=== PATIENT | female | born 1995 | race Two or more races ===

== ENCOUNTER 2017-07-21 11:35 | Emergency (ER) | payer BC, MEDICAID ==
[~2017-07-21] VITALS: Ht 172.7 cm; Wt 63.2 kg
[~2017-07-21 11:35] MED LIST: DRON2.5C PO; ERYT-109 PO; GABA-532 PO; HYDR2TAB28 PO; INSU100C4 SQ; INSU100V12 SQ; LISI-600 PO; LORA1TAB PO; PROC-8 PO; ZOLP5TAB2 PO
[2017-07-21 12:34] LABS: BASOPHILS % (AUTO) 0.4 % (0-1); EOSINOPHILS # (AUTO) 0.1 X10'3 (0-0.9); EOSINOPHILS % (AUTO) 1.3 % (0-6); HEMOGLOBIN 13.9 g/dl (12.0-16.0); LYMPHOCYTES # (AUTO) 3.5 X10'3 (1.1-4.8); LYMPHOCYTES % (AUTO) 39.1 % (21-51); MEAN CORPUSCULAR HEMOGLOBIN 29.3 PG (27.0-31.0); MEAN CORPUSCULAR VOLUME 88.9 FL (78-98); MONOCYTES # (AUTO) 0.7 X10'3 (0-0.9); MONOCYTES % (AUTO) 7.3 % (2-12); NEUTROPHILS # (AUTO) 4.7 X10'3 (1.8-7.7); NEUTROPHILS % (AUTO) 51.9 % (42-75); PLATELET COUNT 328 X10'3 (140-440); RED BLOOD COUNT 4.73 X10'6 (4.20-5.60); RED CELL DISTRIBUTION WIDTH 13.3 % (11.5-14.5)
[2017-07-21 12:42] LABS: PROTHROMBIN TIME 10.5 SECONDS (9.0-12.0)
[2017-07-21 12:49] LABS: ALANINE AMINOTRANSFERASE 23 U/L (12-78); ALBUMIN 3.5 G/DL (3.4-5.0); ALKALINE PHOSPHATASE 98 IU/L (46-116); ANION GAP 15 (8-16); ASPARTATE AMINO TRANSFERASE 19 U/L (10-37); BILIRUBIN,TOTAL 0.4 MG/DL (0.1-1.0); BLOOD UREA NITROGEN 6 MG/DL (7-18); BUN/CREATININE RATIO 6.5 (6.6-38.0); CALCIUM 8.6 MG/DL (8.5-10.1); CHLORIDE 101 MMOL/L (99-107); CREATININE 0.93 MG/DL (0.40-0.90); GLUCOSE 343 MG/DL (70-104); LIPASE 107 U/L (73-393); SODIUM 139 MMOL/L (135-145); TOTAL CARBON DIOXIDE 23.5 MMOL/L (24-32); eGFR 75 ML/MIN
[2017-07-21 12:59] LABS: MAGNESIUM 1.6 MG/DL (1.5-2.4); PHOSPHORUS 2.5 MG/DL (2.3-4.5)
[2017-07-21 13:03] LABS: POTASSIUM 2.9 MMOL/L (3.5-5.1)
[2017-07-21] MEDS ORDERED: ondansetron/PF 4mg/2ml inj IV ONE (13:05)
[2017-07-21] MEDS ORDERED: potassium Cl 20 mEq SR tablet PO ONE (13:05)
[2017-07-21] MEDS ORDERED: normal saline 1000ML IV soln IVB ONE (13:05)
[2017-07-21] MEDS ORDERED: potassium Cl 10 mEq/100mL bag IV ONE (13:05)
[2017-07-21] MEDS ORDERED: potassium 10mEq/100ml NS w/LIDOcaine (10mg/bag) IV ONE (13:30)
[2017-07-21] MEDS ORDERED: POTA10TA10 PO (14:03)
[2017-07-21 15:05] LABS: URINE HCG NEGATIVE (NEG)
[2017-07-21] MEDS ORDERED: HYDROmorphone inj. 0.5 MG/0.5 ML DISP.SYRIN IV ONE (15:05)
[2017-07-21] MEDS ORDERED: proCHLORperazine 10 MG/2 ml inj IV PRN (15:05)
[2017-07-21 15:09] LABS: CLARITY,URINE CLOUDY (Clear); COLOR,URINE BROWN (Yellow); GLUCOSE, URINE >=1000 mg/dl (Neg); KETONES,URINE TRACE mg/dl (Neg); LEUKOCYTE ESTERASE ,URINE SMALL (Neg); NITRITES, URINE NEGATIVE (Neg); OCCULT BLOOD,URINE SMALL (Neg); PROTEIN,URINE NEGATIVE (Neg); UROBILINOGEN,URINE 0.2 E.U/dL (0.2-1.0)
[2017-07-21 15:18] LABS: UA COLLECTION TYPE CLN CATCH MIDSTREAM
[2017-07-21 15:20] LABS: BACTERIA,URINE 2+ /HPF (Neg); MUCUS STRANDS FEW /LPF (Neg); SQUAMOUS EPITHELIAL CELL,UR MANY /LPF (FEW)
[2017-07-21 16:09] VITALS: BP 155/86
[2017-07-21 16:15] LABS: COLOR,URINE STRAW (Yellow); GLUCOSE, URINE >=1000 mg/dl (Neg); KETONES,URINE NEGATIVE (Neg); LEUKOCYTE ESTERASE ,URINE MODERATE (Neg); NITRITES, URINE NEGATIVE (Neg); OCCULT BLOOD,URINE NEGATIVE (Neg); PH,URINE 6.5 (4.8-8.0); PROTEIN,URINE NEGATIVE (Neg); UROBILINOGEN,URINE 0.2 E.U/dL (0.2-1.0)
[2017-07-21 16:17] LABS: CLARITY,URINE SLIGHTLY CLOUDY (Clear); UA COLLECTION TYPE CLN CATCH MIDSTREAM
[2017-07-21 16:33] LABS: BACTERIA,URINE 3+ /HPF (Neg); RBC,URINE 0-2 /HPF (0-2); SQUAMOUS EPITHELIAL CELL,UR FEW /LPF (FEW)
== END 2017-07-21 16:10 | disposition home or self-care (01) ==
LOC: ER 11:35
DX: E87.6 Hypokalemia (principal); R10.84 Generalized abdominal pain; G89.29 Other chronic pain; R11.2 Nausea with vomiting, unspecified; E11.9 Type 2 diabetes mellitus without complications; F12.10 Cannabis abuse, uncomplicated; Z79.4 Long term (current) use of insulin; Z91.012 Allergy to eggs; Z88.8 Allergy status to other drugs, medicaments and biological substances
CPT/HCPCS: 36415; 80053; 81001; 81025; 83690; 83735; 84100; 85025; 85610; 87077; 87088; 87186; 96361; 96365; 96375; 99284; J0780; J1170; J2270; J2405; J3480; J7030

== ENCOUNTER 2018-03-15 21:51 | Inpatient (IN) | payer BC, MEDICAID ==
[~2018-03-15] VITALS: Ht 172.7 cm; Wt 62.3 kg
[~2018-03-15 21:51] MED LIST changes: -LISI-600 PO
[2018-03-15] MEDS ORDERED: normal saline 1000ML IV soln IVB ONE (23:15)
[2018-03-15] MEDS ORDERED: ondansetron/PF 4mg/2ml inj IV ONE (23:15)
[2018-03-15] MEDS ORDERED: famotidine/PF 10 mg/ml inj IV ONE (23:15)
[2018-03-15] MEDS ORDERED: normal saline 1000ml 1,000 ML IV ONE (23:15)
[2018-03-15] MEDS ORDERED: morphine 4 MG/ML inj SYRINge IV ONE (23:15)
[2018-03-15] MEDS ORDERED: haloperidol lactate 5mg/ml inj IM ONE (23:35)
[2018-03-15] MEDS ORDERED: LORazepam 2 mg/ml vial IV ONE (23:35)
[2018-03-16 00:07] LABS: ALANINE AMINOTRANSFERASE 28 U/L (12-78); ALBUMIN 3.4 G/DL (3.4-5.0); ALBUMIN/GLOBULIN RATIO 0.9 (1.1-1.5); ALKALINE PHOSPHATASE 90 IU/L (46-116); ANION GAP 15 (8-16); ASPARTATE AMINO TRANSFERASE 21 U/L (10-37); BILIRUBIN,TOTAL 0.7 MG/DL (0.1-1.0); BLOOD UREA NITROGEN 9 MG/DL (7-18); BUN/CREATININE RATIO 10.7 (6.6-38.0); CALCIUM 8.6 MG/DL (8.5-10.1); CHLORIDE 105 MMOL/L (99-107); CREATINE KINASE 92 U/L (26-192); CREATININE 0.84 MG/DL (0.40-0.90); GLUCOSE 92 MG/DL (70-104); LIPASE 55 U/L (73-393); MAGNESIUM 1.8 MG/DL (1.5-2.4); SODIUM 138 MMOL/L (135-145); TOTAL CARBON DIOXIDE 18.4 MMOL/L (24-32); eGFR 84 ML/MIN
[2018-03-16 00:11] LABS: POTASSIUM 3.7 MMOL/L (3.5-5.1)
[2018-03-16] MEDS ORDERED: morphine 4 MG/ML inj SYRINge IV ONE ×2 (00:35→04:10)
[2018-03-16 01:23] LABS: BASOPHILS % (AUTO) 0.5 % (0-1); EOSINOPHILS % (AUTO) 0.1 % (0-6); HEMOGLOBIN 11.6 g/dl (12.0-16.0); LYMPHOCYTES # (AUTO) 1.4 X10'3 (1.1-4.8); LYMPHOCYTES % (AUTO) 20.8 % (21-51); MEAN CORPUSCULAR HEMOGLOBIN 30.7 PG (27.0-31.0); MEAN CORPUSCULAR HGB CONC 34.1 % (33.0-36.5); MEAN CORPUSCULAR VOLUME 90.1 FL (78-98); MEAN PLATELET VOLUME 9.3 FL (7.4-10.4); MONOCYTES # (AUTO) 0.4 X10'3 (0-0.9); MONOCYTES % (AUTO) 6.1 % (2-12); NEUTROPHILS # (AUTO) 4.8 X10'3 (1.8-7.7); NEUTROPHILS % (AUTO) 72.5 % (42-75); PLATELET COUNT 301 X10'3 (140-440); RED BLOOD COUNT 3.77 X10'6 (4.20-5.60); RED CELL DISTRIBUTION WIDTH 13.1 % (11.5-14.5); WHITE BLOOD COUNT 6.6 X10'3 (4.5-11.0)
[2018-03-16 02:40] LABS: ABG BASE EXCESS -7.4 mmol/L (-2.0-3.0); ABG HCO3 17.4 mmol/L (22.0-26.0); ABG OXYGEN SATURATION 97.4 % (95-98); ABG PCO2 (T) 32.4 mmHg (32.0-45.0); ABG PH (T) 7.346 (7.350-7.450); ABG PO2 (T) 101.7 mmHg (83-108); ALLEN'S TEST Positive; FCOHb 0.3 % (0.5-1.5); FMetHb 0.2 % (0.3-1.12); FO2Hb 96.9 % (94-100); PATIENT TEMPERATURE 36.7; TOTAL HEMOGLOBIN 11.5 G/dl (12.0-16.0)
[2018-03-16] MEDS ORDERED: insulin regular, human 10 units/0.1 ml syringe IV ONE ×2 (04:10→05:25)
[2018-03-16] MEDS ORDERED: dextrose 5%-1/2 normal saline 1,000 ML IV SCH (04:10)
[2018-03-16] MEDS ORDERED: dextrose 50%-water 50ml dispensing syringe IV ONE (04:10)
[2018-03-16] MEDS ORDERED: INSU100C4 SQ (05:58)
[2018-03-16 06:16] LABS: ALBUMIN 2.8 G/DL (3.4-5.0); ANION GAP 12 (8-16); BLOOD UREA NITROGEN 8 MG/DL (7-18); BUN/CREATININE RATIO 10.8 (6.6-38.0); CALCIUM 7.6 MG/DL (8.5-10.1); CHLORIDE 106 MMOL/L (99-107); CREATININE 0.74 MG/DL (0.40-0.90); GLUCOSE 271 MG/DL (70-104); SODIUM 137 MMOL/L (135-145); TOTAL CARBON DIOXIDE 18.6 MMOL/L (24-32); eGFR > 90 ML/MIN
[2018-03-16 06:16] LABS: URINE HCG NEGATIVE (NEG)
[2018-03-16 06:25] LABS: URINE AMPHETAMINE SCREEN NEGATIVE (Neg); URINE BARBITUATE SCREEN NEGATIVE (Neg); URINE BENZODIAZEPINES SCREEN NEGATIVE (Neg); URINE CANNABINOID SCREEN POSITIVE (Neg); URINE COCAINE SCREEN NEGATIVE (Neg); URINE METHADONE SCREEN NEGATIVE (Neg); URINE OPIATE SCREEN POSITIVE (Neg); URINE PHENCYCLIDINE SCREEN NEGATIVE (Neg)
[2018-03-16 06:42] LABS: CLARITY,URINE SLIGHTLY CLOUDY (Clear); COLOR,URINE STRAW (Yellow); GLUCOSE, URINE >=1000 mg/dl (Neg); KETONES,URINE >=80 mg/dl (Neg); LEUKOCYTE ESTERASE ,URINE NEGATIVE (Neg); NITRITES, URINE NEGATIVE (Neg); OCCULT BLOOD,URINE NEGATIVE (Neg); PROTEIN,URINE NEGATIVE (Neg); UROBILINOGEN,URINE 0.2 E.U/dL (0.2-1.0)
[2018-03-16 06:43] LABS: UA COLLECTION TYPE CLN CATCH MIDSTREAM
[2018-03-16 06:44] LABS: BACTERIA,URINE FEW /HPF (Neg); MUCUS STRANDS FEW /LPF (Neg); RBC,URINE NONE SEEN /HPF (0-2); SQUAMOUS EPITHELIAL CELL,UR MODERATE /LPF (FEW); WBC,URINE 0-4 /HPF (0-4); YEAST MODERATE /HPF (NEGATIVE)
[2018-03-16] MEDS: potass W/LIDOcaine 10mEq/100ml 100 ML IV SCH ×2 (06:50→07:45)
[2018-03-16] MEDS ORDERED: potassium Cl 40MEQ/NS 500ml 500 ML IV PRN ×2 (07:50)
[2018-03-16] MEDS ORDERED: metoclopramide 5 mg/ml inj IV PRN (07:50)
[2018-03-16] MEDS ORDERED: acetaminophen 325mg tablet PO PRN ×2 (07:50)
[2018-03-16] MEDS ORDERED: MESSAGE TO PHARMACY PO ONE (07:50)
[2018-03-16] MEDS ORDERED: magnesium 1gm/100ml D5W IVPB 50 ML IV PRN (07:50)
[2018-03-16] MEDS ORDERED: glucagon, human recombinant 1mg kit SUBCUT PRN (07:50)
[2018-03-16] MEDS ORDERED: dextrose 50%-water 50ml dispensing syringe IV PRN ×2 (07:50)
[2018-03-16] MEDS ORDERED: mag hydrox/Alum hydrox/simeth 30ml oral suspension PO PRN (07:50)
[2018-03-16] MEDS ORDERED: dextrose ORAL solution 15 GM/59 ML bottle PO PRN ×2 (07:50)
[2018-03-16] MEDS ORDERED: potassium Cl 20 mEq SR tablet PO PRN ×2 (07:50)
[2018-03-16] MEDS ORDERED: magnesium 4gm in 100ml NS 100 ML IV PRN (07:50)
[2018-03-16] MEDS ORDERED: magnesium hydroxide 30ml (MOM) UD suspension PO PRN (07:50)
[2018-03-16] MEDS ORDERED: magnesium Cl slow-release 64mg tablet PO PRN (07:50)
[2018-03-16] MEDS ORDERED: zolpidem 5mg tablet PO PRN (08:00)
[2018-03-16] MEDS ORDERED: INSULIN DETEMIR 25 UNIT SQ SCH (08:00)
[2018-03-16] MEDS: K and/or MAG REPLACEMENT MC SCH (08:00)
[2018-03-16 08:19] LABS: HEMOGLOBIN A1C 11.8 % (4.5-6.2)
[2018-03-16] MEDS: pantoprazole 40 MG vial IV SCH (08:54)
[2018-03-16] MEDS: normal saline 1000ml 1,000 ML IV SCH ×2 (08:55→16:56)
[2018-03-16] MEDS: gabapentin 300mg capsule PO SCH ×3 (08:55→21:03)
[2018-03-16] MEDS: ondansetron/PF 4mg/2ml inj IV PRN (09:03)
[2018-03-16] MEDS: HYDROmorphone 2mg tablet PO PRN ×2 (09:03→19:55)
[2018-03-16] MEDS: LORazepam 1 MG tablet PO PRN ×2 (11:15→21:03)
[2018-03-16 11:34] VITALS: BP 148/104
[2018-03-16] MEDS: lisinopril 20mg tablet PO SCH (13:05)
[2018-03-16] MEDS: insulin Lispro (HumaLOG) vial - multi-dose SQ SCH ×2 (13:33→21:13)
[2018-03-16] MEDS: dronabinol 2.5mg capsule PO SCH (17:23)
[2018-03-16 18:00] VITALS: BP 127/83
[2018-03-16] MEDS: insulin glargine (Lantus) pen - multi-dose SQ SCH (19:47)
[2018-03-16] MEDS ORDERED: Insulin Detemir pen SQ SCH (20:00)
[2018-03-16] MEDS ORDERED: insulin glargine (Lantus) pen - multi-dose SQ SCH (21:00)
[2018-03-16] MEDS ORDERED: insulin Lispro (HumaLOG) vial - multi-dose SQ ONE (23:57)
[2018-03-17] MEDS: normal saline 1000ml 1,000 ML IV SCH ×2 (00:11→07:55)
[2018-03-17 00:21] VITALS: BP 123/88
[2018-03-17 05:25] LABS: HEMATOCRIT 32.6 % (35.0-45.0); HEMOGLOBIN 10.9 g/dl (12.0-16.0); MEAN CORPUSCULAR HEMOGLOBIN 30.2 PG (27.0-31.0); MEAN CORPUSCULAR HGB CONC 33.4 % (33.0-36.5); MEAN CORPUSCULAR VOLUME 90.3 FL (78-98); MEAN PLATELET VOLUME 9.6 FL (7.4-10.4); PLATELET COUNT 292 X10'3 (140-440); RED BLOOD COUNT 3.61 X10'6 (4.20-5.60); RED CELL DISTRIBUTION WIDTH 13.7 % (11.5-14.5); WHITE BLOOD COUNT 6.3 X10'3 (4.5-11.0)
[2018-03-17 06:43] LABS: ALANINE AMINOTRANSFERASE 16 U/L (12-78); ALBUMIN 2.6 G/DL (3.4-5.0); ALBUMIN/GLOBULIN RATIO 0.8 (1.1-1.5); ALKALINE PHOSPHATASE 87 IU/L (46-116); ANION GAP 8 (8-16); ASPARTATE AMINO TRANSFERASE 14 U/L (10-37); BILIRUBIN,TOTAL 0.4 MG/DL (0.1-1.0); BLOOD UREA NITROGEN 6 MG/DL (7-18); CALCIUM 8.3 MG/DL (8.5-10.1); CHLORIDE 109 MMOL/L (99-107); GLUCOSE 85 MG/DL (70-104); MAGNESIUM 1.7 MG/DL (1.5-2.4); PHOSPHORUS 2.8 MG/DL (2.3-4.5); POTASSIUM 3.5 MMOL/L (3.5-5.1); SODIUM 140 MMOL/L (135-145); TOTAL CARBON DIOXIDE 22.8 MMOL/L (24-32); TOTAL PROTEIN 5.8 G/DL (6.4-8.2); eGFR > 90 ML/MIN
[2018-03-17] MEDS: LORazepam 1 MG tablet PO PRN (06:57)
[2018-03-17] MEDS: K and/or MAG REPLACEMENT MC SCH (07:06)
[2018-03-17 07:31] VITALS: BP 151/99
[2018-03-17] MEDS: lisinopril 20mg tablet PO SCH (07:55)
[2018-03-17] MEDS: gabapentin 300mg capsule PO SCH ×2 (07:55→12:05)
[2018-03-17] MEDS: pantoprazole 40 MG vial IV SCH (07:55)
[2018-03-17] MEDS: HYDROmorphone 2mg tablet PO PRN ×2 (07:56→14:01)
[2018-03-17] MEDS: dronabinol 2.5mg capsule PO SCH (07:56)
[2018-03-17] MEDS: insulin glargine (Lantus) pen - multi-dose SQ SCH (08:05)
[2018-03-17] MEDS: insulin Lispro (HumaLOG) vial - multi-dose SQ SCH ×2 (09:00→14:08)
[2018-03-17] MEDS: ondansetron/PF 4mg/2ml inj IV PRN (09:05)
[2018-03-17] MEDS ORDERED: HYDROmorphone inj. 0.5 MG/0.5 ML DISP.SYRIN IV PRN (09:45)
[2018-03-17] MEDS ORDERED: LORazepam 2 mg/ml vial IV PRN (09:45)
[2018-03-17] MEDS ORDERED: HYDROmorphone 1 mg/ml syringe ONE (09:59)
[2018-03-17 11:32] VITALS: BP 140/96
[2018-03-17] MEDS ORDERED: LISI-600 PO (15:28)
[2018-03-18] MEDS ORDERED: pantoprazole 40mg Tablet.DR PO SCH (07:30)
== END 2018-03-17 15:59 | disposition home or self-care (01) | DRG 74 ==
LOC: ER 21:51 → ED HOLD 03-16 07:50 → SUR 3N 03-16 11:11
PROVIDERS: ADMIT Family Medicine; ATTEND Family Medicine
DX: E10.43 Type 1 diabetes mellitus with diabetic autonomic (poly)neuropathy (principal); E86.0 Dehydration; E87.6 Hypokalemia; F12.90 Cannabis use, unspecified, uncomplicated; F32.9 Major depressive disorder, single episode, unspecified; G89.29 Other chronic pain; I10 Essential (primary) hypertension; E10.10 Type 1 diabetes mellitus with ketoacidosis without coma; K29.50 Unspecified chronic gastritis without bleeding; D64.9 Anemia, unspecified; K31.84 Gastroparesis; T40.7X5A Adverse effect of cannabis (derivatives), initial encounter; Z79.891 Long term (current) use of opiate analgesic; Z79.899 Other long term (current) drug therapy; Z88.8 Allergy status to other drugs, medicaments and biological substances; Z91.012 Allergy to eggs
CPT/HCPCS: 36415; 36600; 71045; 80048; 80053; 80305; 81001; 81025; 82009; 82550; 82803; 82948; 83036; 83690; 83735; 84100; 84132; 85018; 85025; 85027; 93005; 96361; 96372; 96374; 96375; 96376; 99285; C9113; J1170; J1630; J1815; J2060; J2270; J2405; J3480; J3490; J7030; Q0167

== ENCOUNTER 2018-08-28 16:31 | Inpatient (IN) | payer BC, MEDICAID ==
[~2018-08-28] VITALS: Ht 172.7 cm; Wt 68.2 kg
[~2018-08-28 16:31] MED LIST changes: -ERYT-109 PO; +LISI-600 PO
[2018-08-28] MEDS ORDERED: diphenhydrAMINE 50 mg/ml inj IV ONE (16:50)
[2018-08-28] MEDS ORDERED: ondansetron/PF 4mg/2ml inj IV ONE (16:50)
[2018-08-28] MEDS ORDERED: normal saline 1000ML IV soln IVB ONE ×2 (16:50→17:50)
--- NOTE | 2018-08-28 17:02 | NUR ---
pt jumped up off [facility] shortly after she was roomed stating she had "to go the bathroom" I asked pt to wait for me to give her a specimen cup so she could provide a urine specimen, pt said I don't have to do that, "i gotta poop" and pt walked away from me while I was offering her a specimen cup.
[2018-08-28] MEDS ORDERED: insulin regular, human 10 units/0.1 ml syringe IV ONE (17:05)
[2018-08-28 17:22] LABS: BASOPHILS % (AUTO) 0.2 % (0-1); EOSINOPHILS # (AUTO) 0.1 X10'3 (0-0.9); EOSINOPHILS % (AUTO) 1.1 % (0-6); HEMATOCRIT 39.4 % (35.0-45.0); LYMPHOCYTES # (AUTO) 1.9 X10'3 (1.1-4.8); LYMPHOCYTES % (AUTO) 16.9 % (21-51); MEAN CORPUSCULAR HEMOGLOBIN 29.7 PG (27.0-31.0); MEAN CORPUSCULAR HGB CONC 33.1 % (33.0-36.5); MEAN CORPUSCULAR VOLUME 89.7 FL (78-98); MEAN PLATELET VOLUME 9.2 FL (7.4-10.4); MONOCYTES # (AUTO) 0.5 X10'3 (0-0.9); MONOCYTES % (AUTO) 4.4 % (2-12); NEUTROPHILS # (AUTO) 8.7 X10'3 (1.8-7.7); NEUTROPHILS % (AUTO) 77.4 % (42-75); PLATELET COUNT 367 X10'3 (140-440); RED BLOOD COUNT 4.39 X10'6 (4.20-5.60); RED CELL DISTRIBUTION WIDTH 13.4 % (11.5-14.5); WHITE BLOOD COUNT 11.3 X10'3 (4.5-11.0)
[2018-08-28] MEDS ORDERED: morphine 4 MG/ML inj SYRINge IV ONE ×2 (17:30→18:00)
[2018-08-28 17:39] LABS: ALANINE AMINOTRANSFERASE 24 U/L (12-78); ALBUMIN 3.9 G/DL (3.4-5.0); ALBUMIN/GLOBULIN RATIO 0.9 (1.1-1.5); ALKALINE PHOSPHATASE 124 IU/L (46-116); ANION GAP 20 (8-16); ASPARTATE AMINO TRANSFERASE 17 U/L (10-37); BILIRUBIN,TOTAL 0.8 MG/DL (0.1-1.0); BLOOD UREA NITROGEN 19 MG/DL (7-18); BUN/CREATININE RATIO 18.1 (6.6-38.0); CALCIUM 9.7 MG/DL (8.5-10.1); CHLORIDE 95 MMOL/L (99-107); CREATININE 1.05 MG/DL (0.40-0.90); LIPASE 95 U/L (73-393); POTASSIUM 3.4 MMOL/L (3.5-5.1); SODIUM 134 MMOL/L (135-145); TOTAL CARBON DIOXIDE 19.3 MMOL/L (24-32); TOTAL PROTEIN 8.2 G/DL (6.4-8.2); eGFR 64 ML/MIN
[2018-08-28 17:47] LABS: GLUCOSE 504 MG/DL (70-104)
[2018-08-28] MEDS ORDERED: insulin regular, human 100 UNIT in normal saline 100ml IV soln 100 ML IV PRN ×4 (17:50→23:56)
[2018-08-28] MEDS ORDERED: LORazepam 2 mg/ml vial IV ONE ×2 (18:00→19:30)
[2018-08-28 18:18] LABS: MAGNESIUM 1.7 MG/DL (1.5-2.4)
[2018-08-28 18:26] LABS: ABG BASE EXCESS -7.5 mmol/L (-2.0-3.0); ABG HCO3 16.1 mmol/L (22.0-26.0); ABG OXYGEN SATURATION 97.6 % (95-98); ABG PCO2 (T) 27.7 mmHg (32.0-45.0); ABG PH (T) 7.382 (7.350-7.450); ABG PO2 (T) 111.7 mmHg (83-108); ALLEN'S TEST Positive; FMetHb 0.3 % (0.3-1.12); FO2Hb 96.3 % (94-100); TOTAL HEMOGLOBIN 12.7 G/dl (12.0-16.0)
--- NOTE | 2018-08-28 19:25 | NUR ---
DISCUSSED PT'S EMESIS AND HIGH ANXIETY WITH DR STANLEY; NEW ORDERS RECIEVED.
[2018-08-28] MEDS ORDERED: metoclopramide 5 mg/ml inj IV ONE (19:30)
[2018-08-28] MEDS ORDERED: temazepam 15mg capsule PO PRN (21:00)
[2018-08-28] MEDS ORDERED: potassium cl 20mEq in 1/2 NS 1,000 ML IV SCH (21:29)
[2018-08-28] MEDS ORDERED: diphenhydrAMINE 50 mg/ml inj IV PRN (21:30)
[2018-08-28] MEDS ORDERED: mag hydrox/Alum hydrox/simeth 30ml oral suspension PO PRN (21:30)
[2018-08-28] MEDS ORDERED: glucagon, human recombinant 1mg kit SUBCUT PRN (21:30)
[2018-08-28] MEDS ORDERED: magnesium hydroxide 30ml (MOM) UD suspension PO PRN (21:30)
[2018-08-28] MEDS ORDERED: bisacodyl 10mg suppository rectal RC PRN (21:30)
[2018-08-28] MEDS ORDERED: diphenhydrAMINE 25mg capsule PO PRN (21:30)
[2018-08-28] MEDS ORDERED: dextrose 50%-water 50ml dispensing syringe IV PRN ×2 (21:30)
[2018-08-28] MEDS ORDERED: potassium Cl 40MEQ/NS 500ml 500 ML IV PRN ×2 (21:30)
[2018-08-28] MEDS ORDERED: HYDROcodone/acetaminophen 10/325mg tab PO PRN (21:30)
[2018-08-28] MEDS ORDERED: MESSAGE TO PHARMACY PO ONE (21:30)
[2018-08-28] MEDS ORDERED: acetaminophen 650mg rectal suppository RC PRN (21:30)
[2018-08-28] MEDS ORDERED: acetaminophen 325mg tablet PO PRN ×2 (21:30)
[2018-08-28] MEDS ORDERED: dextrose ORAL solution 15 GM/59 ML bottle PO PRN ×2 (21:30)
[2018-08-28] MEDS ORDERED: potassium Cl 20 mEq SR tablet PO PRN ×2 (21:30)
[2018-08-28 21:39] LABS: CLARITY,URINE CLEAR (Clear); COLOR,URINE YELLOW (Yellow); GLUCOSE, URINE >=1000 mg/dl (Neg); KETONES,URINE >=80 mg/dl (Neg); LEUKOCYTE ESTERASE ,URINE NEGATIVE (Neg); NITRITES, URINE NEGATIVE (Neg); OCCULT BLOOD,URINE NEGATIVE (Neg); PROTEIN,URINE NEGATIVE (Neg); UROBILINOGEN,URINE 0.2 E.U/dL (0.2-1.0)
[2018-08-28 21:40] LABS: URINE HCG NEGATIVE (NEG)
[2018-08-28 21:49] LABS: UA COLLECTION TYPE CLN CATCH MIDSTREAM
[2018-08-28 21:51] LABS: BACTERIA,URINE 1+ /HPF (Neg); RBC,URINE NONE SEEN /HPF (0-2); SQUAMOUS EPITHELIAL CELL,UR FEW /LPF (FEW); URINE AMPHETAMINE SCREEN NEGATIVE (Neg); URINE BARBITUATE SCREEN NEGATIVE (Neg); URINE BENZODIAZEPINES SCREEN NEGATIVE (Neg); URINE CANNABINOID SCREEN POSITIVE (Neg); URINE COCAINE SCREEN NEGATIVE (Neg); URINE METHADONE SCREEN NEGATIVE (Neg); URINE OPIATE SCREEN POSITIVE (Neg); URINE PHENCYCLIDINE SCREEN NEGATIVE (Neg); WBC,URINE 0-4 /HPF (0-4)
[2018-08-28 21:52] LABS: HEMOGLOBIN A1C 9.3 % (4.5-6.2)
[2018-08-28 21:52] LABS: YEAST FEW /HPF (NEGATIVE)
[2018-08-28 22:07] LABS: OSMOLALITY 315 MOSM/K (280-300)
[2018-08-28] MEDS: proCHLORperazine 10 MG/2 ml inj IV PRN (22:18)
[2018-08-28] MEDS: morphine 4 MG/ML inj SYRINge IV PRN (22:18)
[2018-08-28 23:00] VITALS: BP 163/99
[2018-08-28] MEDS ORDERED: potassium CL 20mEq in D5-1/2NS 1,000 ML IV PRN (23:18)
[2018-08-29] MEDS ORDERED: insulin regular, human 100 UNIT in normal saline 100ml IV soln 100 ML IV SCH ×4 (00:05)
[2018-08-29] MEDS ORDERED: insulin regular, DKA only 100 UNIT in normal saline 100ml IV soln 99 ML IV SCH ×2 (00:20)
--- NOTE | 2018-08-29 00:26 | NUR ---
Pt came up with BS of 302, we had to start the d5 and insulin at 5 units before scanning the meds because the wrong label was on there and unable to reach pharmacy. Had a second RN do a 2 RN check before we started. Pharmacy did reach back and said it was OK and the label was fixed.
[2018-08-29] MEDS: HYDROmorphone 1 mg/ml syringe IV PRN ×3 (00:32→10:37)
[2018-08-29 01:16] LABS: ALANINE AMINOTRANSFERASE 26 U/L (12-78); ALBUMIN 3.6 G/DL (3.4-5.0); ALBUMIN/GLOBULIN RATIO 0.9 (1.1-1.5); ALKALINE PHOSPHATASE 109 IU/L (46-116); ANION GAP 19 (8-16); ASPARTATE AMINO TRANSFERASE 26 U/L (10-37); BILIRUBIN,TOTAL 0.8 MG/DL (0.1-1.0); BLOOD UREA NITROGEN 21 MG/DL (7-18); BUN/CREATININE RATIO 27.3 (6.6-38.0); CALCIUM 8.8 MG/DL (8.5-10.1); CHLORIDE 100 MMOL/L (99-107); CREATININE 0.77 MG/DL (0.40-0.90); GLUCOSE 349 MG/DL (70-104); POTASSIUM 3.4 MMOL/L (3.5-5.1); SODIUM 137 MMOL/L (135-145); TOTAL CARBON DIOXIDE 18.5 MMOL/L (24-32); TOTAL PROTEIN 7.8 G/DL (6.4-8.2); eGFR > 90 ML/MIN
[2018-08-29 01:18] LABS: BASOPHILS # (AUTO) 0.2 X10'3 (0-0.2); EOSINOPHILS % (AUTO) 0.1 % (0-6); HEMATOCRIT 36.8 % (35.0-45.0); LYMPHOCYTES # (AUTO) 0.6 X10'3 (1.1-4.8); LYMPHOCYTES % (AUTO) 5.3 % (21-51); MEAN CORPUSCULAR HEMOGLOBIN 29.6 PG (27.0-31.0); MEAN CORPUSCULAR HGB CONC 32.7 % (33.0-36.5); MEAN CORPUSCULAR VOLUME 90.6 FL (78-98); MEAN PLATELET VOLUME 9.7 FL (7.4-10.4); MONOCYTES # (AUTO) 0.2 X10'3 (0-0.9); MONOCYTES % (AUTO) 1.5 % (2-12); NEUTROPHILS # (AUTO) 9.8 X10'3 (1.8-7.7); NEUTROPHILS % (AUTO) 91.1 % (42-75); PLATELET COUNT 302 X10'3 (140-440); RED BLOOD COUNT 4.06 X10'6 (4.20-5.60); RED CELL DISTRIBUTION WIDTH 12.9 % (11.5-14.5); WHITE BLOOD COUNT 10.8 X10'3 (4.5-11.0)
[2018-08-29] MEDS: normal saline 1000ml 1,000 ML IV SCH ×2 (01:29→05:29)
[2018-08-29 02:00] VITALS: BP 161/100
[2018-08-29] MEDS: morphine 4 MG/ML inj SYRINge IV PRN ×4 (03:17→18:58)
[2018-08-29 06:00] VITALS: BP 164/99
[2018-08-29] MEDS: proCHLORperazine 10 MG/2 ml inj IV PRN (06:25)
--- NOTE | 2018-08-29 06:30 | NUR ---
Patient in room PCU 3019. I have received report from Stephen GREGG and had the opportunity to ask questions and assume patient care.
--- NOTE | 2018-08-29 06:30 | NUR ---
Patient in room PCU 3019. I have received report from Stephen GREGG and had the opportunity to ask questions and assume patient care.
[2018-08-29 06:41] LABS: BASOPHILS % (AUTO) 0 % (0-1); EOSINOPHILS # (AUTO) 0.1 X10'3 (0-0.9); EOSINOPHILS % (AUTO) 0.6 % (0-6); HEMATOCRIT 37.3 % (35.0-45.0); HEMOGLOBIN 12.2 g/dl (12.0-16.0); LYMPHOCYTES # (AUTO) 1.5 X10'3 (1.1-4.8); LYMPHOCYTES % (AUTO) 10.2 % (21-51); MEAN CORPUSCULAR HEMOGLOBIN 29.8 PG (27.0-31.0); MEAN CORPUSCULAR HGB CONC 32.8 % (33.0-36.5); MEAN CORPUSCULAR VOLUME 90.7 FL (78-98); MEAN PLATELET VOLUME 9.6 FL (7.4-10.4); MONOCYTES # (AUTO) 0.4 X10'3 (0-0.9); MONOCYTES % (AUTO) 2.8 % (2-12); NEUTROPHILS # (AUTO) 12.6 X10'3 (1.8-7.7); NEUTROPHILS % (AUTO) 86.4 % (42-75); PLATELET COUNT 324 X10'3 (140-440); RED BLOOD COUNT 4.11 X10'6 (4.20-5.60); RED CELL DISTRIBUTION WIDTH 13.9 % (11.5-14.5); WHITE BLOOD COUNT 14.6 X10'3 (4.5-11.0)
--- NOTE | 2018-08-29 06:50 | NUR ---
Problems reprioritized. Patient report given, questions answered & plan of care reviewed with Nneka GREGG.
[2018-08-29 07:01] LABS: ALANINE AMINOTRANSFERASE 13 U/L (12-78); ALBUMIN 3.7 G/DL (3.4-5.0); ALBUMIN/GLOBULIN RATIO 0.9 (1.1-1.5); ALKALINE PHOSPHATASE 110 IU/L (46-116); ANION GAP 15 (8-16); ASPARTATE AMINO TRANSFERASE 17 U/L (10-37); BILIRUBIN,TOTAL 0.8 MG/DL (0.1-1.0); BLOOD UREA NITROGEN 18 MG/DL (7-18); BUN/CREATININE RATIO 29.5 (6.6-38.0); CALCIUM 9.4 MG/DL (8.5-10.1); CHLORIDE 104 MMOL/L (99-107); CREATININE 0.61 MG/DL (0.40-0.90); GLUCOSE 148 MG/DL (70-104); POTASSIUM 3.8 MMOL/L (3.5-5.1); SODIUM 140 MMOL/L (135-145); TOTAL CARBON DIOXIDE 21.1 MMOL/L (24-32); eGFR > 90 ML/MIN
[2018-08-29] MEDS ORDERED: insulin regular, human vial - multi-dose SQ SCH (07:33)
--- NOTE | 2018-08-29 07:40 | NUR ---
Paged Dr. Iyer. [facility] [phone]. RE: Ivy Gaxiola [phone]. Blood glucose 124. Insulin gtt @ 5 units/hr. IVF D5 1/2 NS @ 250. CO2 - 21.1 Anion Gap 15. Please advise. Thank you.
[2018-08-29] MEDS ORDERED: Insulin Detemir pen SQ ONE (07:55)
[2018-08-29] MEDS: K and/or MAG REPLACEMENT MC SCH (08:00)
[2018-08-29] MEDS: docusate sod 100mg capsule PO SCH ×2 (08:00→21:46)
[2018-08-29] MEDS: heparin, porcine 5000 units/ml vial SQ SCH ×2 (08:00→20:00)
--- NOTE | 2018-08-29 08:00 | NUR ---
New orders per Dr. Iyer: Levemir 15 units SQ. IVF 1/2 NS + 20K @ 100 mL/ hour. Discontinue insulin gtt - 5 Units/hour. 30 minutes after Levemir is administered.
[2018-08-29] MEDS: potassium cl 20mEq in 1/2 NS 1,000 ML IV SCH ×2 (08:36→19:16)
[2018-08-29] MEDS: insulin glargine (Lantus) pen - multi-dose SQ SCH ×2 (08:42→21:53)
[2018-08-29] MEDS: pantoprazole 40 MG vial IV SCH ×2 (08:46→21:46)
--- NOTE | 2018-08-29 09:15 | NUR ---
15 units lantus (subbed for levemir) given at 0842. Insulin gtt discontinued at 0915 per MD orders.
[2018-08-29] MEDS: ondansetron/PF 4mg/2ml inj IV PRN (10:54)
[2018-08-29 11:00] VITALS: BP 137/78
[2018-08-29] MEDS: ERYTHROMYCIN STEARATE PO SCH ×3 (11:50→21:46)
[2018-08-29] MEDS ORDERED: HYDROcodone/acetaminophen 5mg/325mg tablet PO PRN (11:50)
[2018-08-29] MEDS ORDERED: HYDROmorphone 2mg tablet PO PRN (12:00)
[2018-08-29] MEDS ORDERED: proCHLORperazine 10mg tablet PO PRN (12:00)
--- NOTE | 2018-08-29 12:07 | NUR ---
Paged Dr. Iyer. PAGER ID: [phone] MESSAGE: Nneka ARIE [phone] RE: Cage, Ivy 3019. Patient blood glucose 221 and 195 last 2 checks. Patient attempted to eat. Patient still nauseated and vomited 500 mL. IV Zofran given at 1100. Please advise. Thank you.
[2018-08-29] MEDS: gabapentin 300mg capsule PO SCH ×2 (12:49→21:45)
[2018-08-29] MEDS: lisinopril 20mg tablet PO SCH (13:07)
[2018-08-29] MEDS: insulin Lispro (HumaLOG) vial - multi-dose SQ SCH ×2 (13:10→19:08)
[2018-08-29] MEDS: LORazepam 2 mg/ml vial IV PRN ×2 (13:44→19:35)
[2018-08-29 15:00] VITALS: BP 155/94
--- NOTE | 2018-08-29 18:30 | NUR ---
Problems reprioritized. Patient report given, questions answered & plan of care reviewed with Jose Raul GREGG.
[2018-08-29] MEDS: dronabinol 2.5mg capsule PO SCH (18:59)
--- NOTE | 2018-08-29 18:59 | NUR ---
Initial: Pt admitted with DKA now resolved per MD progress notes. Pt previously admitted and seen by RD 03/20/18 with A1c 11.8 given written and verbal DM and gastroparesis education. Current A1c 9.3. Attempted visit with pt at bedside however pt was sleeping and did not wake for RD visit. Written gastroparesis and DM education with referral to outpatient DM class and RD contact information left at patient's bedside. Patient previously on CHO controlled diet however diet has been decreased to clear liquid d/t pt with emesis. Recommend diet advancement to low residue CHO controlled as medically indicated to help manage gastroparesis. No documented BM, edema, or wounds. Will continue to follow. Recommendations: 1) Advance to low residue CHO controlled diet as medically indicated 2) Wt per rx Addendum: 08/29/18 at [address] Amended: Links added.
[2018-08-29 19:00] VITALS: BP 160/97
[2018-08-29] MEDS ORDERED: zolpidem 5mg tablet PO SCH (21:00)
[2018-08-29 23:00] VITALS: BP 155/99
[2018-08-30] MEDS: morphine 4 MG/ML inj SYRINge IV PRN ×2 (02:57→08:00)
[2018-08-30] MEDS: LORazepam 2 mg/ml vial IV PRN ×2 (02:57→07:59)
[2018-08-30 03:00] VITALS: BP 158/102
[2018-08-30] MEDS: ondansetron/PF 4mg/2ml inj IV PRN (04:52)
[2018-08-30] MEDS: potassium cl 20mEq in 1/2 NS 1,000 ML IV SCH (04:54)
[2018-08-30 06:00] VITALS: BP 96/67
--- NOTE | 2018-08-30 06:30 | NUR ---
Patient in room PCU 3019. I have received report from MARYSOL Blunt and had the opportunity to ask questions and assume patient care.
[2018-08-30] MEDS: dronabinol 2.5mg capsule PO SCH (07:49)
[2018-08-30] MEDS: pantoprazole 40 MG vial IV SCH (07:50)
[2018-08-30] MEDS: heparin, porcine 5000 units/ml vial SQ SCH (07:52)
[2018-08-30] MEDS: insulin glargine (Lantus) pen - multi-dose SQ SCH (07:55)
--- NOTE | 2018-08-30 07:57 | NUR ---
Paged Dr. Lainez: PAGER ID: [phone] MESSAGE: Hi Dr Lainez:, Re Khalida, Ivy 3533, Pt is adamant about leaving by 9 am. States that her mom can only get her at that time and her family is leaving. Pt informed about leaving Valerie WATERS Ext [phone]
[2018-08-30] MEDS: lisinopril 20mg tablet PO SCH (07:58)
[2018-08-30 07:59] VITALS: BP 139/92
[2018-08-30] MEDS: docusate sod 100mg capsule PO SCH (07:59)
[2018-08-30] MEDS: gabapentin 300mg capsule PO SCH (07:59)
[2018-08-30] MEDS: ERYTHROMYCIN STEARATE PO SCH (07:59)
--- NOTE | 2018-08-30 07:59 | NUR ---
Pts blood pressure is 139/92, taken before given Lisinopril 20 mg PO.
[2018-08-30] MEDS: K and/or MAG REPLACEMENT MC SCH (08:00)
[2018-08-30] MEDS ORDERED: lisinopril 20mg tablet PO SCH (08:00)
[2018-08-30] MEDS: insulin Lispro (HumaLOG) vial - multi-dose SQ SCH (08:12)
--- NOTE | 2018-08-30 09:50 | NUR ---
PT LEFT ALERT AND ORIENTED, STABLE FOR DISCHARGE. PT ACCOMPANIED BY MOTHER. ALL EDUCATION GIVEN TO PATIENT VERBALLY AND HAND OUTS WITH DISCHARGE FOLDER. PATIENT UNDERSTANDS THE IMPORTANCE OF FOLLOWING UP WITH PCP IN [facility], AND MANAGING DIABETES AND LOWERING A1C. NO NEW MEDICATIONS, PATIENT INSTRUCTED TO FOLLOW MEDICATION REGIMEN AND TO FOLLOW UP WITH PCP. IV REMOVED, CANNULA INTACT, TELE REMOVED AND RETURNED TO [employer]. PATIENT ACCOMPANIED BY MOTHER AND RN DOWNSTAIRS TO LEAVE VIA PRIVATE VEHICLE BACK HOME.
== END 2018-08-30 09:45 | disposition home or self-care (01) | DRG 638 ==
LOC: ER 16:31 → ED HOLD 21:29 → PCU 3S 22:30
PROVIDERS: ADMIT Family Medicine; ATTEND Internal Medicine
DX: E10.10 Type 1 diabetes mellitus with ketoacidosis without coma (principal); N17.9 Acute kidney failure, unspecified; D72.828 Other elevated white blood cell count; E10.43 Type 1 diabetes mellitus with diabetic autonomic (poly)neuropathy; E86.1 Hypovolemia; E87.6 Hypokalemia; F12.90 Cannabis use, unspecified, uncomplicated; I10 Essential (primary) hypertension; K31.84 Gastroparesis; E86.0 Dehydration; F41.9 Anxiety disorder, unspecified; G89.29 Other chronic pain; Z79.4 Long term (current) use of insulin; Z88.8 Allergy status to other drugs, medicaments and biological substances; Z79.899 Other long term (current) drug therapy
CPT/HCPCS: 36415; 36600; 71045; 80053; 80305; 81001; 81025; 82803; 82948; 83036; 83690; 83735; 83880; 83930; 84100; 85018; 85025; 87070; 96365; 96375; 96376; 99285; C9113; G0378; J0780; J1170; J1200; J1644; J1815; J2060; J2270; J2405; J2765; J3480; J7030; Q0164; Q0167

== ENCOUNTER 2023-08-05 08:32 | Inpatient (IN) | payer BC, MEDICAID ==
[~2023-08-05] VITALS: Ht 172.7 cm; Wt 52.3 kg
[~2023-08-05 08:32] MED LIST changes: -LISI-600 PO; +LISI20TA28 PO
[2023-08-05 09:23] LABS: BILIRUBIN,URINE SMALL (Neg); CLARITY,URINE CLOUDY (Clear); COLOR,URINE YELLOW (Yellow); GLUCOSE, URINE >=1000 mg/dl (Neg); KETONES,URINE 15 mg/dl (Neg); LEUKOCYTE ESTERASE ,URINE MODERATE (Neg); NITRITES, URINE NEGATIVE (Neg); OCCULT BLOOD,URINE LARGE (Neg); PROTEIN,URINE 100 mg/dl (Neg); UROBILINOGEN,URINE 0.2 E.U/dL (0.2-1.0)
[2023-08-05] MEDS ORDERED: diphenhydrAMINE 50 mg/ml inj IM ONE (09:25)
[2023-08-05] MEDS ORDERED: normal saline 1000ML IV soln IVB ONE ×2 (09:25→11:10)
[2023-08-05] MEDS ORDERED: haloperidol lactate 5mg/ml inj IM ONE (09:25)
[2023-08-05 09:26] LABS: URINE HCG NEGATIVE (NEG)
[2023-08-05 09:27] LABS: ALANINE AMINOTRANSFERASE 12 U/L (12-78); ALBUMIN 3.1 G/DL (3.4-5.0); ALBUMIN/GLOBULIN RATIO 0.4 (1.1-1.5); ALKALINE PHOSPHATASE 203 IU/L (46-116); ANION GAP 17 (8-16); ASPARTATE AMINO TRANSFERASE 16 U/L (10-37); BILIRUBIN,TOTAL 0.5 MG/DL (0.1-1.0); BLOOD UREA NITROGEN 27 MG/DL (7-18); CALCIUM 10.6 MG/DL (8.5-10.1); CHLORIDE 91 MMOL/L (99-107); CREATININE 2.25 MG/DL (0.40-0.90); LIPASE 9 U/L (16-77); POTASSIUM 4.2 MMOL/L (3.5-5.1); SODIUM 133 MMOL/L (135-145); TOTAL CARBON DIOXIDE 25.1 MMOL/L (24-32); TOTAL PROTEIN 10.8 G/DL (6.4-8.2); eCRCL 31 ML/MIN; eGFR 26 ML/MIN
[2023-08-05 09:37] LABS: GLUCOSE 611 MG/DL (70-104)
[2023-08-05 09:43] LABS: UA COLLECTION TYPE CLN CATCH MIDSTREAM
[2023-08-05 09:44] LABS: BACTERIA,URINE 4+ /HPF (Neg); WBC,URINE TNTC /HPF (0-4)
[2023-08-05 09:45] LABS: MUCUS STRANDS FEW /LPF (Neg); SQUAMOUS EPITHELIAL CELL,UR FEW /LPF (FEW)
[2023-08-05] MEDS ORDERED: Insulin Reg/NS 100units/100mL 100 ML IV PRN (10:15)
[2023-08-05] MEDS ORDERED: insulin regular, human U-100 3ml vial - multi-dose IV ONE (10:15)
[2023-08-05 10:33] LABS: BASOPHILS # (AUTO) 0.1 X10'3 (0-0.2); BASOPHILS % (AUTO) 0.5 % (0-1); EOSINOPHILS % (AUTO) 0.1 % (0-6); HEMATOCRIT 28.9 % (35.0-45.0); HEMOGLOBIN 8.8 g/dl (12.0-16.0); LYMPHOCYTES # (AUTO) 0.6 X10'3 (1.1-4.8); LYMPHOCYTES % (AUTO) 4.7 % (21-51); MEAN CORPUSCULAR HEMOGLOBIN 26.5 PG (27.0-31.0); MEAN CORPUSCULAR HGB CONC 30.4 g/dL (33.0-36.5); MEAN PLATELET VOLUME 8.7 FL (7.4-10.4); MONOCYTES # (AUTO) 0.6 X10'3 (0-0.9); MONOCYTES % (AUTO) 4.8 % (2-12); NEUTROPHILS # (AUTO) 12.2 X10'3 (1.8-7.7); NEUTROPHILS % (AUTO) 89.9 % (42-75); PLATELET COUNT 418 X10'3 (140-440); RED BLOOD COUNT 3.32 X10'6 (4.20-5.60); RED CELL DISTRIBUTION WIDTH 15.6 % (11.5-14.5); WHITE BLOOD COUNT 13.6 X10'3 (4.5-11.0)
[2023-08-05] MEDS ORDERED: insulin regular, human 10 units/0.1 ml syringe IV ONE (10:35)
[2023-08-05 11:37] LABS: ACETONE SMALL (NEGATIVE)
[2023-08-05] MEDS ORDERED: CefTRIAXone/D5W-Rocephin 1gm 50 ML IV ONE (12:25)
[2023-08-05] MEDS ORDERED: sodium bicarbonate (8.4%) inj. 50 MEQ in dextrose 5% water 500ml 250 ML IV PRN (13:20)
[2023-08-05] MEDS ORDERED: potassium Cl 40MEQ/1/2NS 520ml 520 ML IV PRN ×3 (13:20→13:25)
[2023-08-05] MEDS ORDERED: sodium phosphate inj. 15 MMOL in dextrose 5%-water 250 ML IV PRN (13:20)
[2023-08-05] MEDS ORDERED: potassium Cl 20 mEq SR tablet PO PRN ×3 (13:20→13:25)
[2023-08-05] MEDS ORDERED: sodium phosphate inj. 30 MMOL in dextrose 5%-water 250 ML IV PRN (13:20)
[2023-08-05] MEDS ORDERED: potassium CL 20mEq in D5-1/2NS 1,000 ML IV PRN (13:20)
[2023-08-05] MEDS ORDERED: normal saline 1000ml 1,000 ML IV SCH (13:20)
[2023-08-05] MEDS ORDERED: sodium bicarbonate (8.4%) inj. 100 MEQ in dextrose 5% water 500ml 500 ML IV PRN (13:20)
[2023-08-05] MEDS ORDERED: Neutra Phos packet PO PRN (13:20)
[2023-08-05] MEDS ORDERED: metoclopramide 5 mg/ml inj IV PRN (13:25)
[2023-08-05] MEDS ORDERED: DEXTROSE 15 GM of carb/4 tabs (each vial/BOTTLE has 4 tablets) PO PRN ×2 (13:25)
[2023-08-05] MEDS ORDERED: dextrose 50%-water 50ml dispensing syringe IV PRN ×2 (13:25)
[2023-08-05] MEDS ORDERED: acetaminophen 325mg tablet PO PRN (13:25)
[2023-08-05] MEDS ORDERED: magnesium hydroxide 30ml (MOM) UD suspension PO PRN (13:25)
[2023-08-05] MEDS ORDERED: MESSAGE TO PHARMACY PO ONE (13:25)
[2023-08-05] MEDS ORDERED: mag hydrox/Alum hydrox/simeth 30ml oral suspension PO PRN (13:25)
[2023-08-05] MEDS ORDERED: magnesium 2GM in 50ml NS 50 ML IV PRN (13:25)
[2023-08-05] MEDS ORDERED: magnesium 4gm in 100ml NS 100 ML IV PRN (13:25)
[2023-08-05] MEDS ORDERED: glucagon, human recombinant 1mg kit SUBCUT PRN (13:25)
[2023-08-05 14:01] LABS: ALBUMIN 2.1 G/DL (3.4-5.0); ANION GAP 7 (8-16); BLOOD UREA NITROGEN 27 MG/DL (7-18); BUN/CREATININE RATIO 15.3 (10.0-20.0); CALCIUM 8.8 MG/DL (8.5-10.1); CHLORIDE 105 MMOL/L (99-107); CREATININE 1.76 MG/DL (0.40-0.90); GLUCOSE 257 MG/DL (70-104); PHOSPHORUS 3.2 MG/DL (2.3-4.5); POTASSIUM 3.5 MMOL/L (3.5-5.1); SODIUM 141 MMOL/L (135-145); TOTAL CARBON DIOXIDE 28.9 MMOL/L (24-32); eCRCL 39 ML/MIN; eGFR 34 ML/MIN
[2023-08-05] MEDS ORDERED: proCHLORperazine 10 MG/2 ml inj IV PRN (14:10)
[2023-08-05] MEDS: normal saline 1000ml 1,000 ML IV SCH (14:42)
[2023-08-05] MEDS ORDERED: morphine 2 MG/ML inj. syringe IV PRN (16:55)
[2023-08-05 19:00] VITALS: BP 171/103; PULSE 104; RESP 14; TEMP 98.6; O2SAT 99
[2023-08-05] MEDS: ondansetron/PF 4mg/2ml inj IV PRN (19:02)
[2023-08-05 20:00] VITALS: RESP 18; O2SAT 98
[2023-08-05] MEDS: K and/or MAG REPLACEMENT MC SCH (20:00)
[2023-08-05] MEDS ORDERED: K and/or MAG REPLACEMENT MC SCH (20:00)
[2023-08-05] MEDS: heparin, porcine 5000 units/ml vial SQ SCH (20:00)
[2023-08-05] MEDS: docusate sod 100mg capsule PO SCH (20:00)
[2023-08-05] MEDS: morphine 4 MG/ML inj SYRINge IV PRN (20:26)
[2023-08-05] MEDS: insulin glargine (Lantus) pen - multi-dose SQ SCH (21:24)
[2023-08-05] MEDS: insulin Lispro (HumaLOG) vial - multi-dose SQ SCH ×2 (21:27→22:48)
[2023-08-05] MEDS: metoclopramide 5 mg/ml inj IV PRN (21:31)
[2023-08-05 22:00] VITALS: BP 182/118; PULSE 120; RESP 20; TEMP 98.3; O2SAT 98
[2023-08-05] MEDS ORDERED: metoprolol succinate 25mg (24-HOUR) SR. Tablet PO ONE (22:45)
[2023-08-06] VITALS (9 sets, daily range): BP systolic 158–196; BP diastolic 98–122; PULSE 84–106; RESP 16–20; TEMP 96.7–98.6; O2SAT 96–100
[2023-08-06] MEDS: morphine 4 MG/ML inj SYRINge IV PRN ×6 (00:04→23:31)
[2023-08-06] MEDS: ondansetron/PF 4mg/2ml inj IV PRN (00:59)
[2023-08-06] MEDS ORDERED: amLODIPine 5mg tablet PO ONE (01:55)
[2023-08-06] MEDS: normal saline 1000ml 1,000 ML IV SCH ×3 (02:07→19:25)
[2023-08-06] MEDS ORDERED: lisinopril 10 MG tablet PO ONE (03:25)
[2023-08-06] MEDS: metoclopramide 5 mg/ml inj IV PRN ×2 (05:22→17:34)
[2023-08-06 06:13] LABS: % IRON SATURATION 13 % (11-46); IRON 24 UG/DL (49-151); TOTAL IRON BINDING CAPACITY 184 UG/DL (259-388)
[2023-08-06 06:14] LABS: ALANINE AMINOTRANSFERASE 11 U/L (12-78); ALBUMIN 2.6 G/DL (3.4-5.0); ALBUMIN/GLOBULIN RATIO 0.4 (1.1-1.5); ALKALINE PHOSPHATASE 180 IU/L (46-116); ASPARTATE AMINO TRANSFERASE 17 U/L (10-37); BILIRUBIN,TOTAL 0.4 MG/DL (0.1-1.0); BLOOD UREA NITROGEN 23 MG/DL (7-18); BUN/CREATININE RATIO 14.3 (10.0-20.0); CALCIUM 9.5 MG/DL (8.5-10.1); CHLORIDE 103 MMOL/L (99-107); CREATININE 1.61 MG/DL (0.40-0.90); GLUCOSE 262 MG/DL (70-104); MAGNESIUM 1.8 MG/DL (1.5-2.4); TOTAL CARBON DIOXIDE 28.9 MMOL/L (24-32); TOTAL PROTEIN 9.4 G/DL (6.4-8.2); eCRCL 43 ML/MIN; eGFR 38 ML/MIN
[2023-08-06 06:19] LABS: ANION GAP 10 (8-16); SODIUM 142 MMOL/L (135-145)
[2023-08-06 06:50] LABS: BASOPHILS # (AUTO) 0.1 X10'3 (0-0.2); BASOPHILS % (AUTO) 0.4 % (0-1); EOSINOPHILS % (AUTO) 0 % (0-6); HEMATOCRIT 32.4 % (35.0-45.0); LYMPHOCYTES # (AUTO) 1.2 X10'3 (1.1-4.8); LYMPHOCYTES % (AUTO) 6.9 % (21-51); MEAN CORPUSCULAR HEMOGLOBIN 26.5 PG (27.0-31.0); MEAN CORPUSCULAR HGB CONC 31.1 g/dL (33.0-36.5); MEAN CORPUSCULAR VOLUME 85.1 FL (78-98); MEAN PLATELET VOLUME 9.2 FL (7.4-10.4); MONOCYTES # (AUTO) 0.6 X10'3 (0-0.9); MONOCYTES % (AUTO) 3.3 % (2-12); NEUTROPHILS % (AUTO) 89.4 % (42-75); PLATELET COUNT 489 X10'3 (140-440); RED CELL DISTRIBUTION WIDTH 15.3 % (11.5-14.5); WHITE BLOOD COUNT 17.9 X10'3 (4.5-11.0)
[2023-08-06 06:53] LABS: HEMOGLOBIN 10.1 g/dl (12.0-16.0)
[2023-08-06 07:13] LABS: HEMOGLOBIN A1C 11.8 % (4.5-6.2)
[2023-08-06] MEDS: docusate sod 100mg capsule PO SCH ×2 (08:00→19:31)
[2023-08-06] MEDS: heparin, porcine 5000 units/ml vial SQ SCH ×2 (08:00→19:31)
[2023-08-06] MEDS: K and/or MAG REPLACEMENT MC SCH ×2 (08:42→20:00)
[2023-08-06] MEDS: CefTRIAXone/D5W-Rocephin 1gm 50 ML IV SCH (08:42)
[2023-08-06] MEDS: insulin Lispro (HumaLOG) vial - multi-dose SQ SCH ×3 (09:00→19:40)
[2023-08-06] MEDS: hydrALAZINE 20mg/ml inj. IV PRN (15:47)
[2023-08-06] MEDS: diphenhydrAMINE 50 mg/ml inj IV PRN ×2 (15:51→22:00)
[2023-08-06] MEDS: ascorbic acid 500mg tablet PO SCH (17:25)
[2023-08-06] MEDS: ferrous sulfate 300mg/5ml UD oral liquid PO SCH (17:25)
[2023-08-06] MEDS: insulin glargine (Lantus) pen - multi-dose SQ SCH (21:53)
[2023-08-07 02:00] VITALS: BP 161/99
[2023-08-07] MEDS: ondansetron/PF 4mg/2ml inj IV PRN ×2 (04:32→11:23)
[2023-08-07] MEDS: morphine 4 MG/ML inj SYRINge IV PRN ×4 (04:35→15:23)
[2023-08-07] MEDS: normal saline 1000ml 1,000 ML IV SCH (05:25)
[2023-08-07] MEDS: diphenhydrAMINE 50 mg/ml inj IV PRN ×2 (05:48→11:44)
[2023-08-07] MEDS: hydrALAZINE 20mg/ml inj. IV PRN (05:48)
[2023-08-07 06:12] VITALS: BP 182/107; PULSE 90; RESP 16; TEMP 98.8; O2SAT 99
[2023-08-07 06:15] LABS: BASOPHILS # (AUTO) 0.1 X10'3 (0-0.2); BASOPHILS % (AUTO) 0.4 % (0-1); EOSINOPHILS % (AUTO) 0.3 % (0-6); HEMATOCRIT 31.7 % (35.0-45.0); LYMPHOCYTES # (AUTO) 1.7 X10'3 (1.1-4.8); MEAN CORPUSCULAR HEMOGLOBIN 26.7 PG (27.0-31.0); MEAN CORPUSCULAR HGB CONC 31.5 g/dL (33.0-36.5); MEAN CORPUSCULAR VOLUME 84.7 FL (78-98); MEAN PLATELET VOLUME 8.8 FL (7.4-10.4); MONOCYTES # (AUTO) 0.7 X10'3 (0-0.9); MONOCYTES % (AUTO) 5.2 % (2-12); NEUTROPHILS # (AUTO) 11.3 X10'3 (1.8-7.7); NEUTROPHILS % (AUTO) 82.1 % (42-75); PLATELET COUNT 470 X10'3 (140-440); RED BLOOD COUNT 3.74 X10'6 (4.20-5.60); WHITE BLOOD COUNT 13.8 X10'3 (4.5-11.0)
[2023-08-07 06:29] LABS: ALBUMIN 2.4 G/DL (3.4-5.0); ALBUMIN/GLOBULIN RATIO 0.4 (1.1-1.5); ALKALINE PHOSPHATASE 157 IU/L (46-116); ANION GAP 8 (8-16); ASPARTATE AMINO TRANSFERASE 15 U/L (10-37); BILIRUBIN,TOTAL 0.8 MG/DL (0.1-1.0); BLOOD UREA NITROGEN 13 MG/DL (7-18); BUN/CREATININE RATIO 11.4 (10.0-20.0); CALCIUM 9.2 MG/DL (8.5-10.1); CHLORIDE 101 MMOL/L (99-107); CREATININE 1.14 MG/DL (0.40-0.90); GLUCOSE 189 MG/DL (70-104); MAGNESIUM 1.5 MG/DL (1.5-2.4); POTASSIUM 3.3 MMOL/L (3.5-5.1); SODIUM 138 MMOL/L (135-145); TOTAL CARBON DIOXIDE 29.5 MMOL/L (24-32); TOTAL PROTEIN 8.4 G/DL (6.4-8.2); eCRCL 61 ML/MIN; eGFR 57 ML/MIN
[2023-08-07 06:38] LABS: ALANINE AMINOTRANSFERASE < 6 U/L (12-78)
[2023-08-07] MEDS: ferrous sulfate 300mg/5ml UD oral liquid PO SCH (07:00)
[2023-08-07] MEDS: docusate sod 100mg capsule PO SCH (07:58)
[2023-08-07] MEDS: heparin, porcine 5000 units/ml vial SQ SCH (07:58)
[2023-08-07] MEDS: ascorbic acid 500mg tablet PO SCH (08:00)
[2023-08-07] MEDS: K and/or MAG REPLACEMENT MC SCH (08:00)
[2023-08-07] MEDS: CefTRIAXone/D5W-Rocephin 1gm 50 ML IV SCH (08:03)
[2023-08-07] MEDS: insulin Lispro (HumaLOG) vial - multi-dose SQ SCH (09:09)
[2023-08-07 10:00] VITALS: BP 145/108; PULSE 100; RESP 16; TEMP 98.9; O2SAT 99
[2023-08-07 12:14] VITALS: RESP 18
[2023-08-07] MEDS ORDERED: SULF1TAB49 PO (13:16)
[2023-08-07 15:23] VITALS: RESP 18
== END 2023-08-07 15:31 | disposition home or self-care (01) | DRG 463 ==
LOC: ER 08:33 → ED HOLD 13:29 → ORTHO 4S 19:00
PROVIDERS: ADMIT Family Medicine; ATTEND Family Medicine
DX: N12 Tubulo-interstitial nephritis, not specified as acute or chronic (principal); N17.0 Acute kidney failure with tubular necrosis; E10.43 Type 1 diabetes mellitus with diabetic autonomic (poly)neuropathy; K31.84 Gastroparesis; D63.8 Anemia in other chronic diseases classified elsewhere; E10.65 Type 1 diabetes mellitus with hyperglycemia; D50.9 Iron deficiency anemia, unspecified; Z83.3 Family history of diabetes mellitus; Z88.8 Allergy status to other drugs, medicaments and biological substances; Z79.899 Other long term (current) drug therapy
CPT/HCPCS: 36415; 74176; 80048; 80053; 81001; 81025; 82009; 82948; 83036; 83540; 83550; 83690; 83735; 84100; 85025; 87077; 87081; 87088; 87186; 99285; G0378; J0360; J0696; J1200; J1630; J1644; J1815; J2270; J2405; J2765; J7030

== ENCOUNTER 2023-09-27 16:45 | Emergency (ER) | payer MEDICAID ==
[~2023-09-27] VITALS: Ht 170.2 cm; Wt 58.6 kg
[2023-09-27 16:52] VITALS: BP 94/56; PULSE 78; RESP 18; TEMP 97.8; O2SAT 98
== END 2023-09-27 22:51 | disposition left against medical advice (07) ==
LOC: ER 16:46
DX: M25.551 Pain in right hip (principal); Z53.21 Procedure and treatment not carried out due to patient leaving prior to being seen by health care provider
CPT/HCPCS: 73502; 99281

== ENCOUNTER 2023-11-12 00:29 | Inpatient (IN) | payer MEDICAID ==
[2023-11-12] VITALS (22 sets, daily range): BP systolic 139–194; BP diastolic 81–126; PULSE 77–109; RESP 11–24; TEMP 97.2–98.4; O2SAT 92–100
[~2023-11-12] VITALS: Ht 170.2 cm; Wt 55.9 kg
[2023-11-12] MEDS: ondansetron/PF 4mg/2ml inj IV ONE ×2 (00:53→07:49)
[2023-11-12] MEDS: morphine 4 MG/ML inj SYRINge IV ONE ×2 (00:53→04:48)
[2023-11-12 01:07] LABS: EOSINOPHILS % (AUTO) 0.1 % (0-6); HEMOGLOBIN 8.8 g/dl (12.0-16.0); MEAN CORPUSCULAR VOLUME 89.9 FL (78-98); RED CELL DISTRIBUTION WIDTH 17.7 % (11.5-14.5)
[2023-11-12 01:08] LABS: BASOPHILS % (AUTO) 0.2 % (0-1); HEMATOCRIT 27.2 % (35.0-45.0); LYMPHOCYTES # (AUTO) 2.1 X10'3 (1.1-4.8); LYMPHOCYTES % (AUTO) 13.2 % (21-51); MEAN CORPUSCULAR HGB CONC 32.2 g/dL (33.0-36.5); MEAN PLATELET VOLUME 7.7 FL (7.4-10.4); MONOCYTES % (AUTO) 6.4 % (2-12); NEUTROPHILS # (AUTO) 12.9 X10'3 (1.8-7.7); NEUTROPHILS % (AUTO) 80.1 % (42-75); PLATELET COUNT 585 X10'3 (140-440); RED BLOOD COUNT 3.02 X10'6 (4.20-5.60); WHITE BLOOD COUNT 16.1 X10'3 (4.5-11.0)
[2023-11-12 01:22] LABS: ALANINE AMINOTRANSFERASE 34 U/L (12-78); ALBUMIN 2.7 G/DL (3.4-5.0); ALBUMIN/GLOBULIN RATIO 0.4 (1.1-1.5); ALKALINE PHOSPHATASE 179 IU/L (46-116); ANION GAP 12 (8-16); ASPARTATE AMINO TRANSFERASE 52 U/L (10-37); BILIRUBIN,TOTAL 0.5 MG/DL (0.1-1.0); BLOOD UREA NITROGEN 40 MG/DL (7-18); BUN/CREATININE RATIO 21.3 (10.0-20.0); CALCIUM 9.6 MG/DL (8.5-10.1); CHLORIDE 103 MMOL/L (99-107); CREATININE 1.88 MG/DL (0.40-0.90); GLUCOSE 84 MG/DL (70-104); SODIUM 147 MMOL/L (135-145); TOTAL CARBON DIOXIDE 32.2 MMOL/L (24-32); TOTAL PROTEIN 9.5 G/DL (6.4-8.2); eCRCL 35 ML/MIN; eGFR 32 ML/MIN
[2023-11-12 01:25] LABS: LIPASE 11 U/L (16-77)
[2023-11-12 01:29] LABS: POTASSIUM 3.8 MMOL/L (3.5-5.1)
[2023-11-12] MEDS: normal saline 1000ML IV soln IVB ONE (01:45)
[2023-11-12] MEDS: dextrose 50%-water 50ml dispensing syringe IV ONE (04:38)
[2023-11-12 05:55] LABS: HCG SERUM QL NEGATIVE
[2023-11-12 07:45] LABS: BILIRUBIN,URINE NEGATIVE (Neg); CLARITY,URINE CLOUDY (Clear); COLOR,URINE YELLOW (Yellow); GLUCOSE, URINE NEGATIVE (Neg); KETONES,URINE NEGATIVE (Neg); LEUKOCYTE ESTERASE ,URINE SMALL (Neg); NITRITES, URINE NEGATIVE (Neg); OCCULT BLOOD,URINE SMALL (Neg); PH,URINE 7.5 (4.8-8.0); PROTEIN,URINE 100 mg/dl (Neg); UROBILINOGEN,URINE 0.2 E.U/dL (0.2-1.0)
[2023-11-12] MEDS: HYDROmorphone 1 mg/ml syringe IV ONE (07:49)
[2023-11-12] MEDS: vancomycin/NS 1 GM ADD-VANTAGE 250 ML IV ONE (07:49)
[2023-11-12 07:50] LABS: UA COLLECTION TYPE CLN CATCH MIDSTREAM
[2023-11-12 07:53] LABS: SQUAMOUS EPITHELIAL CELL,UR FEW /LPF (FEW)
[2023-11-12 07:54] LABS: WBC,URINE TNTC /HPF (0-4)
[2023-11-12 07:55] LABS: BACTERIA,URINE 1+ /HPF (Neg)
[2023-11-12 08:11] LABS: MAGNESIUM 2.2 MG/DL (1.5-2.4)
[2023-11-12] MEDS: LidoCAINE 2% Topical Jelly 11mL syringe TOP ONE ×2 (08:15→08:55)
[2023-11-12 08:16] LABS: URINE AMPHETAMINE SCREEN NEGATIVE (Neg); URINE BARBITUATE SCREEN NEGATIVE (Neg); URINE BENZODIAZEPINES SCREEN NEGATIVE (Neg); URINE CANNABINOID SCREEN POSITIVE (Neg); URINE COCAINE SCREEN NEGATIVE (Neg); URINE METHADONE SCREEN NEGATIVE (Neg); URINE OPIATE SCREEN POSITIVE (Neg); URINE PHENCYCLIDINE SCREEN NEGATIVE (Neg)
[2023-11-12] MEDS ORDERED: potassium Cl 20 mEq SR tablet PO PRN ×2 (08:35)
[2023-11-12] MEDS ORDERED: LIDOcaine 2% 10ml TOPICAL JELLY (Urojet) TP ONE (08:35)
[2023-11-12] MEDS ORDERED: magnesium hydroxide 30ml (MOM) UD suspension PO PRN (08:35)
[2023-11-12] MEDS ORDERED: magnesium 4gm in 100ml NS 100 ML IV PRN (08:35)
[2023-11-12] MEDS ORDERED: normal saline 1000ml 1,000 ML IV SCH (08:35)
[2023-11-12] MEDS ORDERED: magnesium 2GM in 50ml NS 50 ML IV PRN (08:35)
[2023-11-12] MEDS ORDERED: magnesium Cl slow-release 64mg tablet PO PRN (08:35)
[2023-11-12] MEDS ORDERED: mag hydrox/Alum hydrox/simeth 30ml oral suspension PO PRN (08:35)
[2023-11-12] MEDS ORDERED: acetaminophen 325mg tablet PO PRN (08:35)
[2023-11-12] MEDS ORDERED: potassium Cl 40MEQ/1/2NS 520ml 520 ML IV PRN (08:35)
[2023-11-12] MEDS ORDERED: cloNIDine 0.1 mg tablet PO PRN (08:45)
[2023-11-12 09:05] LABS: APTT 25 SECONDS (22-32); INR 1.1 INR; PROTHROMBIN TIME 11.4 SECONDS (9.0-12.0)
[2023-11-12] MEDS ORDERED: dextrose 50%-water 50ml dispensing syringe IV PRN ×2 (09:10)
[2023-11-12] MEDS ORDERED: glucagon, human recombinant 1mg kit SUBCUT PRN (09:10)
[2023-11-12] MEDS ORDERED: DEXTROSE 15 GM of carb/4 tabs (each vial/BOTTLE has 4 tablets) PO PRN ×2 (09:10)
[2023-11-12 09:12] LABS: ALANINE AMINOTRANSFERASE 25 U/L (12-78); ALBUMIN 2.5 G/DL (3.4-5.0); ALBUMIN/GLOBULIN RATIO 0.4 (1.1-1.5); ALKALINE PHOSPHATASE 159 IU/L (46-116); ANION GAP 15 (8-16); ASPARTATE AMINO TRANSFERASE 44 U/L (10-37); BILIRUBIN,TOTAL 0.6 MG/DL (0.1-1.0); BLOOD UREA NITROGEN 34 MG/DL (7-18); BUN/CREATININE RATIO 20.6 (10.0-20.0); CALCIUM 9.3 MG/DL (8.5-10.1); CHLORIDE 105 MMOL/L (99-107); CREATININE 1.65 MG/DL (0.40-0.90); GLUCOSE 202 MG/DL (70-104); POTASSIUM 3.8 MMOL/L (3.5-5.1); SODIUM 145 MMOL/L (135-145); TOTAL CARBON DIOXIDE 25.3 MMOL/L (24-32); TOTAL PROTEIN 8.8 G/DL (6.4-8.2); eCRCL 40 ML/MIN; eGFR 37 ML/MIN
[2023-11-12] MEDS ORDERED: meperidine/PF 25mg/ml syringe IV PRN ×2 (09:25)
[2023-11-12] MEDS ORDERED: enalaprilat dihydrate 2.5mg/2ml vial IV PRN (09:25)
[2023-11-12] MEDS ORDERED: morphine 2 MG/ML inj. syringe IV PRN (09:25)
[2023-11-12] MEDS ORDERED: labetalol 20mg/4ml (5mg/ml) syringe IV PRN (09:25)
[2023-11-12] MEDS ORDERED: ondansetron/PF 4mg/2ml inj IV PRN (09:25)
[2023-11-12] MEDS: ringers solution, lacted 1,000 ML IV SCH ×2 (09:25→10:39)
[2023-11-12] MEDS: cloNIDine 0.1 mg tablet PO ONE (10:39)
[2023-11-12] MEDS: cefepime 2g/NS 100ml ADVANTAGE 100 ML IV ONE (10:39)
[2023-11-12] MEDS: ringers solution, lacted 1,000 ML IV ONE (10:40)
[2023-11-12] MEDS: morphine 4 MG/ML inj SYRINge IV PRN ×2 (10:40→15:50)
[2023-11-12] MEDS ORDERED: iohexol 300 MG/1 ML 50ml polymer ONE (13:37)
[2023-11-12] MEDS: insulin regular, human 10 units/0.1 ml syringe IV ONE (13:43)
[2023-11-12] MEDS ORDERED: sevoflurane 250ml liquid IH ONE (13:52)
[2023-11-12] MEDS ORDERED: fentaNYL/PF 50MCG/1 ML 2ML syringe ONE (14:11)
[2023-11-12] MEDS ORDERED: midazolam 1 mg/ML 2ml injection ONE (14:12)
[2023-11-12] MEDS ORDERED: LIDOcaine 2% (20mg/ml) 5ml vial ONE (14:21)
[2023-11-12] MEDS ORDERED: rocuronium 10mg/ml inj IV ONE (14:21)
[2023-11-12] MEDS ORDERED: propofol inj 20 ML IV ONE (14:21)
[2023-11-12] MEDS ORDERED: ondansetron/PF 4mg/2ml inj ONE (14:24)
[2023-11-12] MEDS: iohexol 300 MG/1 ML 50ml polymer IV ONE (14:28)
[2023-11-12] MEDS ORDERED: sugammadex 200mg/2ml injection IV ONE (14:33)
[2023-11-12] MEDS: meperidine/PF 25mg/ml syringe IV PRN (15:39)
[2023-11-12] MEDS: proCHLORperazine 10 MG/2 ml inj IV PRN (15:43)
[2023-11-12] MEDS: cefepime 2g/NS 100ml ADVANTAGE 100 ML IV SCH (16:00)
[2023-11-12] MEDS: buprenorphine/naloxone 8MG-2MG SUBlingual film SL ONE (16:17)
[2023-11-12] MEDS: pantoprazole 40 MG vial IV ONE (16:50)
[2023-11-12] MEDS: ondansetron/PF 4mg/2ml inj IV PRN (18:31)
[2023-11-12] MEDS: docusate sod 100mg capsule PO SCH (19:59)
[2023-11-12] MEDS: heparin, porcine 5000 units/ml vial SQ SCH (19:59)
[2023-11-12] MEDS: K and/or MAG REPLACEMENT MC SCH (20:00)
[2023-11-12] MEDS: insulin Lispro (HumaLOG) vial - multi-dose SQ SCH (20:04)
[2023-11-12] MEDS: buprenorphine/naloxone 8MG-2MG SUBlingual film SL SCH (20:14)
[2023-11-12] MEDS: insulin glargine (Lantus) pen - multi-dose SQ SCH (21:17)
[2023-11-12] MEDS ORDERED: morphine 4 MG/ML inj SYRINge IV PRN (23:35)
[2023-11-12] MEDS: oxyCODONE/APAP 5-325mg tablet PO ONE (23:51)
[2023-11-13] MEDS: morphine 4 MG/ML inj SYRINge IV PRN (00:02)
[2023-11-13 02:00] VITALS: BP 148/94; PULSE 75; RESP 18; TEMP 97.2; O2SAT 98
[2023-11-13] MEDS ORDERED: LANTUS SQ (05:11)
[2023-11-13] MEDS ORDERED: ATOR20TA66 PO (05:11)
[2023-11-13] MEDS ORDERED: SUBOXONE (05:11)
[2023-11-13] MEDS ORDERED: INSU100I31 SQ (05:11)
[2023-11-13 06:53] VITALS: BP 193/113; PULSE 87; RESP 24; TEMP 98.2; O2SAT 98
[2023-11-13 07:40] LABS: BASOPHILS # (AUTO) 0.1 X10'3 (0-0.2); BASOPHILS % (AUTO) 0.7 % (0-1); EOSINOPHILS % (AUTO) 0.4 % (0-6); HEMATOCRIT 24.3 % (35.0-45.0); HEMOGLOBIN 7.8 g/dl (12.0-16.0); MEAN CORPUSCULAR HEMOGLOBIN 28.9 PG (27.0-31.0); MEAN CORPUSCULAR HGB CONC 32.1 g/dL (33.0-36.5); MEAN CORPUSCULAR VOLUME 90.1 FL (78-98); MONOCYTES # (AUTO) 0.6 X10'3 (0-0.9); MONOCYTES % (AUTO) 5.6 % (2-12); NEUTROPHILS # (AUTO) 7.4 X10'3 (1.8-7.7); NEUTROPHILS % (AUTO) 73.3 % (42-75); PLATELET COUNT 436 X10'3 (140-440); WHITE BLOOD COUNT 10.1 X10'3 (4.5-11.0)
[2023-11-13 08:27] LABS: % IRON SATURATION 42 % (11-46); IRON 71 UG/DL (49-151); TOTAL IRON BINDING CAPACITY 169 UG/DL (259-388)
[2023-11-13 08:32] LABS: ALANINE AMINOTRANSFERASE 24 U/L (12-78); ALBUMIN 1.9 G/DL (3.4-5.0); ALBUMIN/GLOBULIN RATIO 0.3 (1.1-1.5); ALKALINE PHOSPHATASE 139 IU/L (46-116); ANION GAP 9 (8-16); ASPARTATE AMINO TRANSFERASE 27 U/L (10-37); BILIRUBIN,TOTAL 0.6 MG/DL (0.1-1.0); BLOOD UREA NITROGEN 26 MG/DL (7-18); BUN/CREATININE RATIO 18.2 (10.0-20.0); CALCIUM 8.2 MG/DL (8.5-10.1); CHLORIDE 106 MMOL/L (99-107); CREATININE 1.43 MG/DL (0.40-0.90); GLUCOSE 65 MG/DL (70-104); MAGNESIUM 1.7 MG/DL (1.5-2.4); PHOSPHORUS 3.7 MG/DL (2.3-4.5); POTASSIUM 3.6 MMOL/L (3.5-5.1); SODIUM 141 MMOL/L (135-145); TOTAL CARBON DIOXIDE 26.1 MMOL/L (24-32); TOTAL PROTEIN 7.4 G/DL (6.4-8.2); eCRCL 46 ML/MIN; eGFR 52 ML/MIN
[2023-11-13 08:34] LABS: FERRITIN 313 NG/ML (8-252)
[2023-11-13] MEDS: vancomycin/NS 1 GM ADD-VANTAGE 250 ML IV SCH (10:42)
[2023-11-13] MEDS: cloNIDine 0.1 mg tablet PO ONE (11:57)
[2023-11-13] MEDS: normal saline 1000ml 1,000 ML IV SCH (13:30)
[2023-11-13] MEDS: diphenhydrAMINE 25mg capsule PO PRN (17:01)
[2023-11-13 19:00] VITALS: BP 158/95; PULSE 75; RESP 16; TEMP 98; O2SAT 99
[2023-11-13] MEDS: cefepime 2g/NS 100ml ADVANTAGE 100 ML IV SCH (19:47)
[2023-11-13 22:00] VITALS: BP 117/55; PULSE 114; RESP 14; TEMP 98.3; O2SAT 93
[2023-11-13] MEDS: hydrOXYzine 25 MG tablet PO ONE (22:38)
[2023-11-14 07:04] VITALS: BP 155/107; PULSE 74; RESP 23; TEMP 97.9; O2SAT 99
[2023-11-14 07:35] VITALS: RESP 23; O2SAT 99
[2023-11-14] MEDS: lisinopril 10 MG tablet PO SCH (09:30)
[2023-11-14 09:54] LABS: BASOPHILS % (AUTO) 0.5 % (0-1); EOSINOPHILS # (AUTO) 0.1 X10'3 (0-0.9); EOSINOPHILS % (AUTO) 0.7 % (0-6); HEMATOCRIT 23.5 % (35.0-45.0); HEMOGLOBIN 7.6 g/dl (12.0-16.0); LYMPHOCYTES # (AUTO) 1.6 X10'3 (1.1-4.8); MEAN CORPUSCULAR HEMOGLOBIN 28.9 PG (27.0-31.0); MEAN CORPUSCULAR HGB CONC 32.3 g/dL (33.0-36.5); MEAN CORPUSCULAR VOLUME 89.3 FL (78-98); MEAN PLATELET VOLUME 7.2 FL (7.4-10.4); MONOCYTES # (AUTO) 0.6 X10'3 (0-0.9); NEUTROPHILS # (AUTO) 5.1 X10'3 (1.8-7.7); NEUTROPHILS % (AUTO) 68.8 % (42-75); PLATELET COUNT 422 X10'3 (140-440); RED BLOOD COUNT 2.63 X10'6 (4.20-5.60); RED CELL DISTRIBUTION WIDTH 16.5 % (11.5-14.5); WHITE BLOOD COUNT 7.4 X10'3 (4.5-11.0)
[2023-11-14 10:18] LABS: ALANINE AMINOTRANSFERASE 18 U/L (12-78); ALBUMIN 1.9 G/DL (3.4-5.0); ALBUMIN/GLOBULIN RATIO 0.4 (1.1-1.5); ALKALINE PHOSPHATASE 117 IU/L (46-116); ANION GAP 6 (8-16); ASPARTATE AMINO TRANSFERASE 17 U/L (10-37); BILIRUBIN,TOTAL 0.3 MG/DL (0.1-1.0); BLOOD UREA NITROGEN 18 MG/DL (7-18); BUN/CREATININE RATIO 12.9 (10.0-20.0); CALCIUM 8.4 MG/DL (8.5-10.1); CHLORIDE 105 MMOL/L (99-107); GLUCOSE 113 MG/DL (70-104); MAGNESIUM 1.7 MG/DL (1.5-2.4); POTASSIUM 3.3 MMOL/L (3.5-5.1); SODIUM 138 MMOL/L (135-145); TOTAL CARBON DIOXIDE 26.7 MMOL/L (24-32); TOTAL PROTEIN 7.2 G/DL (6.4-8.2); eCRCL 52 ML/MIN; eGFR 54 ML/MIN
[2023-11-14] MEDS: hydrALAZINE 20mg/ml inj. IV ONE (11:26)
[2023-11-14 11:36] VITALS: BP 178/103; PULSE 89; RESP 18; TEMP 97.9; O2SAT 100
[2023-11-14 12:20] VITALS: BP 161/104
[2023-11-14] MEDS: potassium Cl 20 mEq SR tablet PO STA (12:28)
[2023-11-14] MEDS ORDERED: CEFD300C3 PO (12:46)
[2023-11-14] MEDS ORDERED: LISI20TA28 PO (12:46)
[2023-11-14] MEDS: POTASSIUM BICARB 20meq eff tab 20 MEQ TABLET.EFF PO ONE (12:56)
[2023-11-14 13:57] VITALS: RESP 23
[2023-11-14 14:41] VITALS: RESP 16
[2023-11-15] MEDS ORDERED: VANCOMYCIN LEVEL IV ONE (07:30)
== END 2023-11-14 16:15 | disposition home or self-care (01) | DRG 720 ==
LOC: ER 00:30 → ED HOLD 08:42 → SUR 3N 16:37
PROVIDERS: ADMIT Family Medicine; ATTEND Family Medicine
PROC: 0T768DZ Dilation of Right Ureter with Intraluminal Device, Via Natural or Artificial Opening Endoscopic (ICD-10-PCS; 2023-11-12)
PROC: BT1D1ZZ Fluoroscopy of Right Kidney, Ureter and Bladder using Low Osmolar Contrast (ICD-10-PCS; principal; 2023-11-12 13:52)
DX: A41.9 Sepsis, unspecified organism (principal); N17.0 Acute kidney failure with tubular necrosis; E10.649 Type 1 diabetes mellitus with hypoglycemia without coma; N12 Tubulo-interstitial nephritis, not specified as acute or chronic; F17.210 Nicotine dependence, cigarettes, uncomplicated; G89.29 Other chronic pain; F11.10 Opioid abuse, uncomplicated; D64.9 Anemia, unspecified; Z79.4 Long term (current) use of insulin; Z79.899 Other long term (current) drug therapy; Z83.3 Family history of diabetes mellitus
CPT/HCPCS: 36415; 74176; 80053; 80305; 81001; 82728; 82948; 83540; 83550; 83605; 83690; 83735; 84100; 84145; 84484; 84703; 85025; 85610; 85730; 87040; 87077; 87081; 87088; 87186; 99291; A4357; A4618; A5200; C1758; C1769; C2617; C9113; G0378; J0360; J0692; J0780; J1170; J1644; J1815; J2175; J2250; J2270; J2405; J2704; J3010; J3370; J3490; J7030; J7040; J7120; Q0163; Q0177; Q9967

== ENCOUNTER 2023-11-17 22:59 | Inpatient (IN) | payer MEDICAID ==
[~2023-11-17] VITALS: Ht 170.2 cm; Wt 57.7 kg
[~2023-11-17 22:59] MED LIST changes: +ATOR20TA66 PO; +CEFD300C3 PO; -DRON2.5C PO; -GABA-532 PO; -HYDR2TAB28 PO; -INSU100C4 SQ; +INSU100I31 SQ; -INSU100V12 SQ; +LANTUS SQ; -LORA1TAB PO; -PROC-8 PO; +SUBOXONE; -ZOLP5TAB2 PO
[2023-11-17] MEDS: normal saline 1000ml 1,000 ML IV ONE (23:46)
[2023-11-18] VITALS (17 sets, daily range): BP systolic 122–222; BP diastolic 73–123; PULSE 86–108; RESP 12–18; TEMP 96.7–97.8; O2SAT 97–100
[2023-11-18 00:03] LABS: BASOPHILS % (AUTO) 0.2 % (0-1); EOSINOPHILS # (AUTO) 0.1 X10'3 (0-0.9); EOSINOPHILS % (AUTO) 0.7 % (0-6); HEMATOCRIT 28.8 % (35.0-45.0); HEMOGLOBIN 9.4 g/dl (12.0-16.0); LYMPHOCYTES # (AUTO) 3.8 X10'3 (1.1-4.8); LYMPHOCYTES % (AUTO) 29.2 % (21-51); MEAN CORPUSCULAR HEMOGLOBIN 29.1 PG (27.0-31.0); MEAN CORPUSCULAR HGB CONC 32.7 g/dL (33.0-36.5); MEAN CORPUSCULAR VOLUME 88.8 FL (78-98); MEAN PLATELET VOLUME 8.3 FL (7.4-10.4); MONOCYTES # (AUTO) 0.8 X10'3 (0-0.9); MONOCYTES % (AUTO) 5.8 % (2-12); NEUTROPHILS # (AUTO) 8.4 X10'3 (1.8-7.7); NEUTROPHILS % (AUTO) 64.1 % (42-75); PLATELET COUNT 571 X10'3 (140-440); RED BLOOD COUNT 3.25 X10'6 (4.20-5.60); RED CELL DISTRIBUTION WIDTH 16.4 % (11.5-14.5); WHITE BLOOD COUNT 13.1 X10'3 (4.5-11.0)
[2023-11-18 00:25] LABS: ALANINE AMINOTRANSFERASE 25 U/L (12-78); ALBUMIN 2.2 G/DL (3.4-5.0); ALBUMIN/GLOBULIN RATIO 0.4 (1.1-1.5); ALKALINE PHOSPHATASE 123 IU/L (46-116); ANION GAP 5 (8-16); ASPARTATE AMINO TRANSFERASE 10 U/L (10-37); BILIRUBIN,TOTAL 0.2 MG/DL (0.1-1.0); BLOOD UREA NITROGEN 19 MG/DL (7-18); BUN/CREATININE RATIO 12.6 (10.0-20.0); CALCIUM 8.5 MG/DL (8.5-10.1); CHLORIDE 109 MMOL/L (99-107); CREATININE 1.51 MG/DL (0.40-0.90); GLUCOSE 156 MG/DL (70-104); LIPASE 18 U/L (16-77); SODIUM 148 MMOL/L (135-145); TOTAL CARBON DIOXIDE 34.4 MMOL/L (24-32); TOTAL PROTEIN 7.9 G/DL (6.4-8.2); eCRCL 50 ML/MIN; eGFR 49 ML/MIN
[2023-11-18 00:35] LABS: POTASSIUM 2.9 MMOL/L (3.5-5.1)
[2023-11-18] MEDS: potassium Cl 20 mEq SR tablet PO ONE (00:51)
[2023-11-18] MEDS: HYDROcodone/acetaminophen 5mg/325mg tablet PO ONE (03:24)
[2023-11-18] MEDS: ondansetron/PF 4mg/2ml inj IV ONE (03:34)
[2023-11-18] MEDS: morphine 4 MG/ML inj SYRINge IV ONE ×2 (04:04→05:53)
[2023-11-18] MEDS ORDERED: acetaminophen 325mg tablet PO PRN (04:20)
[2023-11-18] MEDS ORDERED: DEXTROSE 15 GM of carb/4 tabs (each vial/BOTTLE has 4 tablets) PO PRN ×2 (04:20)
[2023-11-18] MEDS ORDERED: mag hydrox/Alum hydrox/simeth 30ml oral suspension PO PRN (04:20)
[2023-11-18] MEDS ORDERED: magnesium hydroxide 30ml (MOM) UD suspension PO PRN (04:20)
[2023-11-18] MEDS ORDERED: glucagon, human recombinant 1mg kit SUBCUT PRN (04:20)
[2023-11-18] MEDS ORDERED: magnesium 2GM in 50ml NS 50 ML IV PRN ×2 (04:20→09:40)
[2023-11-18] MEDS ORDERED: magnesium Cl slow-release 64mg tablet PO PRN ×2 (04:20→09:40)
[2023-11-18] MEDS ORDERED: dextrose 50%-water 50ml dispensing syringe IV PRN (04:20)
[2023-11-18] MEDS ORDERED: magnesium 4gm in 100ml NS 100 ML IV PRN ×2 (04:20→09:40)
[2023-11-18] MEDS: MESSAGE TO PHARMACY PO ONE (04:33)
[2023-11-18 04:49] LABS: MAGNESIUM 1.9 MG/DL (1.5-2.4)
[2023-11-18 05:01] LABS: HEMOGLOBIN A1C 9.2 % (4.5-6.2)
[2023-11-18] MEDS: potassium Cl 40MEQ/1/2NS 520ml 520 ML IV STA (05:02)
[2023-11-18] MEDS: acetaminophen 1,000mg/100ml IV 100 ML IV SCH (05:32)
[2023-11-18] MEDS: normal saline 1000ml 1,000 ML IV SCH (05:34)
[2023-11-18] MEDS: metoclopramide 5 mg/ml inj IV ONE (05:46)
[2023-11-18] MEDS ORDERED: HYDROmorphone inj. 0.5 MG/0.5 ML DISP.SYRIN IV PRN ×2 (07:20→09:55)
[2023-11-18 07:24] LABS: HCG SERUM QL NEGATIVE
[2023-11-18] MEDS ORDERED: cefepime 2g/NS 100ml ADVANTAGE 100 ML IV SCH (08:00)
[2023-11-18] MEDS ORDERED: acetaminophen 1,000mg/100ml IV 100 ML IV SCH (08:00)
[2023-11-18] MEDS: HYDROmorphone 1 mg/ml syringe IV PRN ×2 (08:06→10:17)
[2023-11-18] MEDS: lisinopril 20mg tablet PO SCH (09:35)
[2023-11-18] MEDS ORDERED: potassium Cl 20 mEq SR tablet PO PRN ×2 (09:40)
[2023-11-18] MEDS: K and/or MAG REPLACEMENT MC SCH (09:40)
[2023-11-18] MEDS ORDERED: potassium Cl 40MEQ/1/2NS 520ml 520 ML IV PRN (09:40)
[2023-11-18] MEDS: docusate sod 100mg capsule PO SCH (10:03)
[2023-11-18] MEDS: proCHLORperazine 10 MG/2 ml inj IV PRN (10:16)
[2023-11-18] MEDS: pantoprazole 40 MG vial IV SCH (10:18)
[2023-11-18] MEDS: heparin, porcine 5000 units/ml vial SQ SCH (10:18)
[2023-11-18] MEDS: labetalol 20mg/4ml (5mg/ml) syringe IV ONE (10:19)
[2023-11-18] MEDS: cefepime 2g/NS 100ml ADVANTAGE 100 ML IV SCH (10:19)
[2023-11-18] MEDS: insulin Lispro (HumaLOG) vial - multi-dose SQ SCH (10:25)
[2023-11-18] MEDS ORDERED: metoclopramide 5 mg/ml inj IV PRN (11:10)
[2023-11-18] MEDS: LORazepam 2 mg/ml vial IV PRN (11:56)
[2023-11-18] MEDS: metoclopramide 5 mg/ml inj IV SCH (11:58)
[2023-11-18 12:04] LABS: BILIRUBIN,URINE NEGATIVE (Neg); CLARITY,URINE CLOUDY (Clear); COLOR,URINE YELLOW (Yellow); GLUCOSE, URINE >=1000 mg/dl (Neg); KETONES,URINE TRACE mg/dl (Neg); LEUKOCYTE ESTERASE ,URINE SMALL (Neg); NITRITES, URINE NEGATIVE (Neg); OCCULT BLOOD,URINE LARGE (Neg); PROTEIN,URINE 100 mg/dl (Neg); UROBILINOGEN,URINE 0.2 E.U/dL (0.2-1.0)
[2023-11-18 12:05] LABS: UA COLLECTION TYPE NON-SPECIFIED
[2023-11-18 12:13] LABS: SQUAMOUS EPITHELIAL CELL,UR FEW /LPF (FEW)
[2023-11-18 12:14] LABS: BACTERIA,URINE 1+ /HPF (Neg); RBC,URINE TNTC /HPF (0-2); URINE AMPHETAMINE SCREEN NEGATIVE (Neg); URINE BARBITUATE SCREEN NEGATIVE (Neg); URINE BENZODIAZEPINES SCREEN NEGATIVE (Neg); URINE CANNABINOID SCREEN POSITIVE (Neg); URINE COCAINE SCREEN NEGATIVE (Neg); URINE METHADONE SCREEN NEGATIVE (Neg); URINE OPIATE SCREEN POSITIVE (Neg); URINE PHENCYCLIDINE SCREEN NEGATIVE (Neg)
[2023-11-18] MEDS: hydrALAZINE 20mg/ml inj. IV PRN (14:21)
[2023-11-18] MEDS: ondansetron/PF 4mg/2ml inj IV PRN (18:01)
[2023-11-18] MEDS ORDERED: K and/or MAG REPLACEMENT MC SCH (20:00)
[2023-11-18] MEDS: insulin glargine (Lantus) pen - multi-dose SQ SCH (21:57)
[2023-11-18] MEDS: diphenhydrAMINE 25mg capsule PO PRN (22:01)
[2023-11-19] VITALS (10 sets, daily range): BP systolic 131–170; BP diastolic 84–118; PULSE 82–94; RESP 11–20; TEMP 96.9–99.2; O2SAT 96–99
[2023-11-19 06:55] LABS: BASOPHILS # (AUTO) 0.1 X10'3 (0-0.2); BASOPHILS % (AUTO) 0.9 % (0-1); EOSINOPHILS # (AUTO) 0.1 X10'3 (0-0.9); EOSINOPHILS % (AUTO) 0.9 % (0-6); HEMATOCRIT 22.4 % (35.0-45.0); HEMOGLOBIN 7.4 g/dl (12.0-16.0); LYMPHOCYTES # (AUTO) 2.9 X10'3 (1.1-4.8); LYMPHOCYTES % (AUTO) 33.2 % (21-51); MEAN CORPUSCULAR HEMOGLOBIN 29.2 PG (27.0-31.0); MEAN CORPUSCULAR HGB CONC 32.8 g/dL (33.0-36.5); MEAN CORPUSCULAR VOLUME 89.1 FL (78-98); MEAN PLATELET VOLUME 7.8 FL (7.4-10.4); MONOCYTES # (AUTO) 0.6 X10'3 (0-0.9); MONOCYTES % (AUTO) 7.2 % (2-12); NEUTROPHILS # (AUTO) 5.1 X10'3 (1.8-7.7); NEUTROPHILS % (AUTO) 57.8 % (42-75); PLATELET COUNT 403 X10'3 (140-440); RED BLOOD COUNT 2.52 X10'6 (4.20-5.60); RED CELL DISTRIBUTION WIDTH 16.2 % (11.5-14.5); WHITE BLOOD COUNT 8.9 X10'3 (4.5-11.0)
[2023-11-19 07:28] LABS: ALANINE AMINOTRANSFERASE 21 U/L (12-78); ALBUMIN 2.2 G/DL (3.4-5.0); ALBUMIN/GLOBULIN RATIO 0.4 (1.1-1.5); ALKALINE PHOSPHATASE 119 IU/L (46-116); ANION GAP 6 (8-16); ASPARTATE AMINO TRANSFERASE 29 U/L (10-37); BILIRUBIN,TOTAL 0.2 MG/DL (0.1-1.0); BLOOD UREA NITROGEN 18 MG/DL (7-18); BUN/CREATININE RATIO 12.6 (10.0-20.0); CALCIUM 8.4 MG/DL (8.5-10.1); CHLORIDE 102 MMOL/L (99-107); CREATININE 1.43 MG/DL (0.40-0.90); GLUCOSE 90 MG/DL (70-104); MAGNESIUM 1.8 MG/DL (1.5-2.4); PHOSPHORUS 2.7 MG/DL (2.3-4.5); POTASSIUM 4.1 MMOL/L (3.5-5.1); SODIUM 136 MMOL/L (135-145); TOTAL CARBON DIOXIDE 27.9 MMOL/L (24-32); TOTAL PROTEIN 7.5 G/DL (6.4-8.2); eCRCL 53 ML/MIN; eGFR 52 ML/MIN
[2023-11-19] MEDS: cefepime 2g/NS 100ml ADVANTAGE 100 ML IV SCH (08:03)
[2023-11-19] MEDS: metoprolol tartrate 1mg/ml inj IV ONE ×2 (14:03→17:33)
[2023-11-20 02:00] VITALS: BP 152/99; PULSE 89; RESP 18; TEMP 97.8; O2SAT 96
[2023-11-20 06:00] VITALS: BP 169/104; PULSE 85; RESP 18; TEMP 97.4; O2SAT 98
[2023-11-20 07:12] LABS: BASOPHILS # (AUTO) 0.1 X10'3 (0-0.2); EOSINOPHILS # (AUTO) 0.1 X10'3 (0-0.9); EOSINOPHILS % (AUTO) 1.4 % (0-6); HEMATOCRIT 22.5 % (35.0-45.0); HEMOGLOBIN 7.4 g/dl (12.0-16.0); LYMPHOCYTES # (AUTO) 2.8 X10'3 (1.1-4.8); LYMPHOCYTES % (AUTO) 37.6 % (21-51); MEAN CORPUSCULAR HEMOGLOBIN 29.2 PG (27.0-31.0); MEAN CORPUSCULAR HGB CONC 32.8 g/dL (33.0-36.5); MEAN CORPUSCULAR VOLUME 88.9 FL (78-98); MEAN PLATELET VOLUME 8.1 FL (7.4-10.4); MONOCYTES # (AUTO) 0.8 X10'3 (0-0.9); MONOCYTES % (AUTO) 10.7 % (2-12); NEUTROPHILS # (AUTO) 3.7 X10'3 (1.8-7.7); NEUTROPHILS % (AUTO) 49.3 % (42-75); PLATELET COUNT 360 X10'3 (140-440); RED BLOOD COUNT 2.53 X10'6 (4.20-5.60); RED CELL DISTRIBUTION WIDTH 16.4 % (11.5-14.5); WHITE BLOOD COUNT 7.4 X10'3 (4.5-11.0)
[2023-11-20 07:47] LABS: ALANINE AMINOTRANSFERASE 28 U/L (12-78); ALBUMIN 2.2 G/DL (3.4-5.0); ALBUMIN/GLOBULIN RATIO 0.4 (1.1-1.5); ALKALINE PHOSPHATASE 128 IU/L (46-116); ANION GAP 9 (8-16); ASPARTATE AMINO TRANSFERASE 48 U/L (10-37); BILIRUBIN,TOTAL 0.2 MG/DL (0.1-1.0); BLOOD UREA NITROGEN 14 MG/DL (7-18); BUN/CREATININE RATIO 11.1 (10.0-20.0); CALCIUM 8.3 MG/DL (8.5-10.1); CHLORIDE 105 MMOL/L (99-107); CREATININE 1.26 MG/DL (0.40-0.90); GLUCOSE 77 MG/DL (70-104); MAGNESIUM 1.9 MG/DL (1.5-2.4); POTASSIUM 4.1 MMOL/L (3.5-5.1); SODIUM 139 MMOL/L (135-145); TOTAL CARBON DIOXIDE 25.5 MMOL/L (24-32); TOTAL PROTEIN 7.5 G/DL (6.4-8.2); eCRCL 60 ML/MIN; eGFR 61 ML/MIN
[2023-11-20] MEDS: dextrose 50%-water 50ml dispensing syringe IV PRN (08:01)
[2023-11-20 11:00] VITALS: BP 153/96; PULSE 78; RESP 18; TEMP 98.9; O2SAT 97
[2023-11-20] MEDS ORDERED: METO-292 PO (11:15)
[2023-11-20] MEDS ORDERED: SULF1TAB49 PO (11:15)
[2023-11-20] MEDS ORDERED: ONDA4TAB12 PO (11:15)
== END 2023-11-20 13:15 | disposition home or self-care (01) | DRG 48 ==
LOC: ER 23:00 → ED HOLD 11-18 04:25 → PCU 3S 11-18 07:23
PROVIDERS: ADMIT Internal Medicine Critical Care Medicine; ATTEND Internal Medicine
DX: E10.43 Type 1 diabetes mellitus with diabetic autonomic (poly)neuropathy (principal); E87.0 Hyperosmolality and hypernatremia; E10.22 Type 1 diabetes mellitus with diabetic chronic kidney disease; E87.8 Other disorders of electrolyte and fluid balance, not elsewhere classified; E87.6 Hypokalemia; N10 Acute pyelonephritis; K29.70 Gastritis, unspecified, without bleeding; N18.30 Chronic kidney disease, stage 3 unspecified; I12.9 Hypertensive chronic kidney disease with stage 1 through stage 4 chronic kidney disease, or unspecified chronic kidney disease; K31.84 Gastroparesis; Z83.3 Family history of diabetes mellitus; Z79.899 Other long term (current) drug therapy; Z87.440 Personal history of urinary (tract) infections
CPT/HCPCS: 36415; 80053; 80305; 81001; 82948; 83036; 83605; 83690; 83735; 84100; 84132; 84145; 84703; 85025; 87081; 87088; 93005; 99285; C9113; G0378; J0131; J0360; J0692; J0780; J1170; J1644; J2060; J2270; J2405; J2765; J3480; J3490; J7030; Q0163

== ENCOUNTER 2025-01-29 12:57 | Inpatient (IN) | payer MEDICAID ==
[~2025-01-29] VITALS: Ht 170.2 cm; Wt 71.4 kg
[~2025-01-29 12:57] MED LIST changes: -ATOR20TA66 PO; -CEFD300C3 PO; -LISI20TA28 PO; +METO-292 PO; +ONDA-243 PO
[2025-01-29 14:01] LABS: BASOPHILS # (AUTO) 0.1 X10'3 (0-0.2); BASOPHILS % (AUTO) 0.8 % (0-1); EOSINOPHILS % (AUTO) 0.3 % (0-6); HEMATOCRIT 28.4 % (35.0-45.0); HEMOGLOBIN 9.3 g/dl (12.0-16.0); LYMPHOCYTES # (AUTO) 1.5 X10'3 (1.1-4.8); LYMPHOCYTES % (AUTO) 11.5 % (21-51); MEAN CORPUSCULAR HEMOGLOBIN 29.9 PG (27.0-31.0); MEAN CORPUSCULAR HGB CONC 32.9 g/dL (33.0-36.5); MEAN CORPUSCULAR VOLUME 90.9 FL (78-98); MEAN PLATELET VOLUME 8.9 FL (7.4-10.4); MONOCYTES # (AUTO) 0.6 X10'3 (0-0.9); MONOCYTES % (AUTO) 4.6 % (2-12); NEUTROPHILS # (AUTO) 10.7 X10'3 (1.8-7.7); NEUTROPHILS % (AUTO) 82.8 % (42-75); PLATELET COUNT 263 X10'3 (140-440); RED BLOOD COUNT 3.12 X10'6 (4.20-5.60); RED CELL DISTRIBUTION WIDTH 13.5 % (11.5-14.5)
[2025-01-29 14:30] LABS: ALANINE AMINOTRANSFERASE 64 U/L (12-78); ALBUMIN 2.9 G/DL (3.4-5.0); ALBUMIN/GLOBULIN RATIO 0.7 (1.1-1.5); ALKALINE PHOSPHATASE 131 IU/L (46-116); ANION GAP 13 (8-16); ASPARTATE AMINO TRANSFERASE 32 U/L (10-37); BILIRUBIN,TOTAL 0.5 MG/DL (0.1-1.0); BLOOD UREA NITROGEN 72 MG/DL (7-18); BUN/CREATININE RATIO 12.5 (10.0-20.0); CALCIUM 8.6 MG/DL (8.5-10.1); CHLORIDE 107 MMOL/L (99-107); CREATININE 5.78 MG/DL (0.40-0.90); GLUCOSE 173 MG/DL (70-104); LIPASE 31 U/L (16-77); POTASSIUM 4.5 MMOL/L (3.5-5.1); SODIUM 142 MMOL/L (135-145); TOTAL CARBON DIOXIDE 21.8 MMOL/L (24-32); TOTAL PROTEIN 7.2 G/DL (6.4-8.2); eCRCL 14 ML/MIN; eGFR 10 ML/MIN
[2025-01-29] MEDS: ringers solution, lacted 1,000 ML IV ONE ×2 (14:44→17:28)
[2025-01-29] MEDS ORDERED: diatr meglu/diatrizoate 30ml oral sol.-(3 dose) bottle PO ONE (14:50)
[2025-01-29] MEDS ORDERED: OLANZapine **IM** 10 mg inj. IM ONE (14:55)
--- NOTE | 2025-01-29 15:02 | Physician Documentation ---
History of Present Illness Chief Complaint: Diabetic Complication Stated Complaint: LOW BLOOD SUGAR Time Seen by MD: 14:32 Primary Medical Doctor: Shira in [place] [facility] HPI 29-year-old female history of type 1 diabetes, gastroparesis status post gastric stimulator presenting for several days of nausea vomiting abdominal pain. Similar to prior episodes of gastroparesis Medication Reconciliation Allergies: Coded Allergies: No Known Allergies (Unverified , 11/12/23) Scheduled Metoclopramide HCl (Reglan), 1 TAB PO Q8H ONDANSETRON ODT 4mg tablet (Ondansetron Odt), 4 MG PO BID [Suboxone], BID, (Reported) Miscellaneous Medications Insulin Glargine,Hum.rec.anlog (Basaglar Kwikpen U-100), SQ, (Reported) Insulin Glargine,Hum.rec.anlog* (Lantus*), SQ, (Reported) Past Medical History Past Medical History: *GI/HEPATOBILIARY*, Diabetes, Chronic Pain Past Surgical History: noncontributory Patient History: FH: diabetes mellitus Great aunt Alcohol Use: None Drug Use: marijuana Lives with: Family Lives In: Home Review of Systems All Other Systems at this time: Reviewed and Negative Constitutional: Denies: fever Physical Exam Vital Signs: Temperature: 98.3, Source: Oral, Heart Rate: 92, Respiratory Rate: 18, BP: 203/124, Pulse Oximetry: 98, Weight: 71.400 Oxygen Flow Rate: 0 Physical Exam Uncomfortable nauseous active dry heaving and vomiting Abdomen diffusely tender no distention positive bowel sounds Neuro awake alert oriented Progress Results/Orders Reviewed/noted all lab results: Yes Results/Orders Orders - JAZMIN HEADLEY MD Urinalysis, Cult If Indicated (01/29/25 13:21) Hcg, Ur Ql (01/29/25 13:21) Ringers Solution, Lacted (Lactated Ringe (01/29/25 14:35) Ct Abdomen Pelvis (01/29/25 14:57) Completed Orders - JAZMIN HEADLEY MD Cbc/Diff (01/29/25 13:21) BMP (01/29/25 13:21) Lipase (01/29/25 13:21) CMP (01/29/25 13:21) Olanzapine Im (Zyprexa I.M. Im On (01/29/25 14:55) Diatr Meglu/Diatrizoate 30ml (Gastrograf (01/29/25 14:50) Medications Received in ER Medications (Trade) Dose Ordered Sig/Cherelle Route PRN Reason Start Time Stop Time Status Last Admin Dose Admin Lactated Ringer's 1,000 ml @ 1,000 mls/hr ONCE ONCE IV 01/29/25 14:35 01/29/25 15:34 01/29/25 14:44 1,000 MLS/HR Vital Signs 01/29/25 01/29/25 01/29/25 13:11 14:04 14:07 Temp 98.3 Pulse 73 92 Resp 16 18 18 B/P (MAP) 190/119 203/124 (150) Pulse Ox 98 98 O2 Flow Rate 0 Laboratory Tests Test 01/29/25 13:49 White Blood Count 13.0 H Red Blood Count 3.12 L Hemoglobin 9.3 L Hematocrit 28.4 L Mean Corpuscular Volume 90.9 Mean Corpuscular Hemoglobin 29.9 Mean Corpuscular Hemoglobin Concent 32.9 L Red Cell Distribution Width 13.5 Platelet Count 263 Mean Platelet Volume 8.9 Neutrophils (%) (Auto) 82.8 H Lymphocytes (%) (Auto) 11.5 L Monocytes (%) (Auto) 4.6 Eosinophils (%) (Auto) 0.3 Basophils (%) (Auto) 0.8 Neutrophils # (Auto) 10.7 H Lymphocytes # (Auto) 1.5 Monocytes # (Auto) 0.6 Eosinophils # (Auto) 0.0 Basophils # (Auto) 0.1 CBC Comment Sodium Level 142 Potassium Level 4.5 Chloride Level 107 Carbon Dioxide Level 21.8 L Anion Gap 13 Blood Urea Nitrogen 72 H Creatinine 5.78 H Estimated GFR/1.73 m2 10 BUN/Creatinine Ratio 12.5 Glucose Level 173 H Calcium Level 8.6 Total Bilirubin 0.5 Aspartate Amino Transf (AST/SGOT) 32 Alanine Aminotransferase (ALT/SGPT) 64 Alkaline Phosphatase 131 H Total Protein 7.2 Albumin 2.9 L Globulin 4.3 Albumin/Globulin Ratio 0.7 L Lipase 31 Chemistry Comments EKG/XRAY/CT/US/VASC/MRI CT : Impression CT abdomen and pelvis independently interpreted shows no urolithiasis Medical Decision Making Additional info obtained from: old records Findings Reviewed operative report November 12, 2023 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 Mcintyre Patient presented to the emergency room with symptoms of gastroparesis. Differentials include but are not limited to gastroparesis, small-bowel obstruction, electrolyte disturbances, dehydration, acute kidney injury therefore emergent labs and imaging indicated. Patient does indeed have acute kidney injury. 2 L of IV fluids administered. Patient also noted to have an urinary tract infection Rocephin has been administered. Differential Dx:Considerations: Include: -Missed, Constipation Additional Comments Pyelonephritis, Departure Disposition: ADMITTED INPATIENT Admitted to Inpatient Unit: yes, to hospitalist Impression: Primary Impression: Diabetic gastroparesis Additional Impressions: Acute kidney injury UTI (urinary tract infection) Qualified Codes: N30.01 - Acute cystitis with hematuria DKA (diabetic ketoacidosis) Qualified Codes: E10.10 - Type 1 diabetes mellitus with ketoacidosis without coma Condition: Guarded Referrals: NO PRIMARY CARE PROVIDER (PCP) Critical Care Note Total Time (mins): 30 Critical Care Note The very real possibility of a deterioration of this patient's condition required the highest level of my preparedness for sudden, emergent intervention. I provided critical care services, which included medication orders, frequent reevaluations of the patient's condition and response to treatment, ordering and reviewing test results, and discussing the case with various consultants. Excludes time spent performing separately billable procedures. The critical care time associated with the care of the patient was 30 minutes in the acute management of DKA Signature Scribe Signature: No scribe Attestation: The note accurately reflects work and decisions made by me.Sarabjit Hodge MD 01/29/25 19:48 JAZMIN HEADLEY MD January 29, 2025 15:02 SARABJIT HODGE MD January 29, 2025 19:48
[2025-01-29] MEDS: fentaNYL/PF 50MCG/1 ML 2ML syringe IV ONE (15:09)
[2025-01-29] MEDS: metoclopramide 5 mg/ml inj IV ONE ×2 (15:09→19:21)
[2025-01-29 16:12] LABS: HCG SERUM QL NEGATIVE
[2025-01-29] MEDS: OLANZapine **IM** 10 mg inj. IM ONE (17:26)
--- NOTE | 2025-01-29 17:40 | RADIOLOGY REPORT ---
Procedure: CT CT ABDOMEN PELVIS 01/29/2025 04:36 PM Indication: abdominal pain, renal failure Comparison Study: CT CT ABDOMEN PELVIS on DOS: 11/12/23, CT CT ABDOMEN PELVIS on DOS: 08/06/23 Technique: Axial images were obtained and reformatted in coronal and sagittal planes. All CT scans at this medical facility are performed using dose modulation techniques as appropriate to a performed e xam including the following: Automated exposure control was utilized; adjustment of the MA and/or KV according to patient size; and use of iterative reconstruction technique. CT Dose: CTDI volume is 15 mGy. Dose-length product is 758 mGy*cm FINDINGS: Lower Chest: Base of the lungs are clear. No pleural effusion. Mild cardiomegaly. Suggestion of an emia. Hepatobiliary: Unremarkable. Spleen: Normal in size. Few punctate calcified granulomas noted. Pancreas: Unremarkable. Adrenal Glands: Unremarkable. tract: The kidneys are normal in size bilaterally without hydronephrosis . A 6 mm nonobstructing stone is seen in the lower pole of the right kidney. The urinary bladder is unremarkable. GI tract: The stomach is grossly normal in appearance. No evidence of small bowel obstruction. The la rge bowel is unremarkable. The appendix is not visualized. No inflammatory change is noted in the rig ht lower quadrant. Lymphatics: No mesenteric, retroperitoneal or periportal lymphadenopathy. Vasculature: The abdominal aorta is normal in caliber. Pelvic Organs: The uterus is unremarkable. No adnexal lesion. Small amount of free fluid in the pel vis noted Bones/soft tissues: No acute abnormality. A neurostimulator device is seen in the left upper quadrant abdominal wall with leads extending anterior to the stomach. There is diffuse body wall edema. Mild skin thickening moderate underlying subcutaneous fat stranding is seen in the right lateral flank, ax ial that could be contusion or site of recent injection. Few subcentimeter foci are seen in the bilat eral paraumbilical subcutaneous fat likely at site of recent injections. Other: None. IMPRESSION: 1. Diffuse body wall edema and mild cardiomegaly. 2. Subcentimeter nonobstructing right renal stone. No hydronephrosis or hydroureter. The kidneys are normal in size with preserved cortical thickness. 3. Small amount of free fluid in pelvis. 4. More nonemergent findings in the body of the report.
[2025-01-29 18:05] LABS: BILIRUBIN,URINE NEGATIVE (Neg); CLARITY,URINE SLIGHTLY CLOUDY (Clear); COLOR,URINE YELLOW (Yellow); GLUCOSE, URINE >=1000 mg/dl (Neg); KETONES,URINE 15 mg/dl (Neg); LEUKOCYTE ESTERASE ,URINE SMALL (Neg); NITRITES, URINE NEGATIVE (Neg); OCCULT BLOOD,URINE MODERATE (Neg); PROTEIN,URINE >=300 mg/dl (Neg); UROBILINOGEN,URINE 0.2 E.U/dL (0.2-1.0)
[2025-01-29 18:14] LABS: UA COLLECTION TYPE VOIDED
[2025-01-29 18:18] LABS: MUCUS STRANDS FEW /LPF (Neg); SQUAMOUS EPITHELIAL CELL,UR FEW /LPF (FEW); WBC,URINE TNTC /HPF (0-4)
[2025-01-29 18:23] LABS: AMORPHOUS URATES 3+
[2025-01-29 18:24] LABS: YEAST FEW /HPF (NEGATIVE)
[2025-01-29 18:25] LABS: BACTERIA,URINE 2+ /HPF (Neg)
[2025-01-29] MEDS: CefTRIAXone/D5W-Rocephin 1gm 50 ML IV ONE (18:53)
[2025-01-29] MEDS ORDERED: cefepime 1GM/NS ADD-VANTAGE 100 ML IV ONE (19:05)
[2025-01-29] MEDS: diphenhydrAMINE 50 mg/ml inj IV ONE (19:20)
[2025-01-29] MEDS: proCHLORperazine 10 MG/2 ml inj IV ONE (19:21)
[2025-01-29] MEDS: acetaminophen 1,000mg/100ml IV 100 ML IV ONE (19:22)
[2025-01-29] MEDS ORDERED: magnesium sulf-water 4G/100mL 100 ML IV PRN (20:10)
[2025-01-29] MEDS ORDERED: metoclopramide 5 mg/ml inj IV PRN (20:10)
[2025-01-29] MEDS ORDERED: magnesium sulf-water 2g/50mL 50 ML IV PRN ×2 (20:10→23:15)
[2025-01-29] MEDS ORDERED: acetaminophen 650mg rectal suppository RC PRN (20:10)
[2025-01-29] MEDS ORDERED: potassium Cl 20 mEq SR tablet PO PRN ×2 (20:10)
[2025-01-29] MEDS ORDERED: potassium Cl 40MEQ/1/2NS 520ml 520 ML IV PRN (20:10)
[2025-01-29] MEDS ORDERED: magnesium Cl slow-release 64mg tablet PO PRN (20:10)
[2025-01-29] MEDS ORDERED: DEXTROSE 15 GM of carb/4 tabs (each vial/BOTTLE has 4 tablets) PO PRN ×2 (20:30)
[2025-01-29] MEDS ORDERED: glucagon, human recombinant 1mg kit SUBCUT PRN (20:30)
[2025-01-29] MEDS ORDERED: dextrose 50%-water 50ml dispensing syringe IV PRN ×3 (20:30→23:15)
[2025-01-29] MEDS: mag hydrox/Alum hydrox/simeth 30ml oral suspension PO PRN (20:51)
[2025-01-29] MEDS: ringers solution, lacted 1,000 ML IV SCH (20:52)
[2025-01-29] MEDS ORDERED: insulin glargine (Lantus) pen - multi-dose SQ SCH (21:00)
[2025-01-29] MEDS ORDERED: INSULIN LISPRO 100 UNIT/ML INSULN.PEN MULTI-DOSE SQ SCH (21:00)
[2025-01-29] MEDS: cefepime 1GM in D5W 50mL 50 ML IV SCH (21:07)
[2025-01-29 21:31] LABS: ANION GAP 17 (8-16); BLOOD UREA NITROGEN 66 MG/DL (7-18); BUN/CREATININE RATIO 11.2 (10.0-20.0); CALCIUM 8.9 MG/DL (8.5-10.1); CHLORIDE 101 MMOL/L (99-107); CREATININE 5.88 MG/DL (0.40-0.90); MAGNESIUM 1.9 MG/DL (1.5-2.4); PHOSPHORUS 5.8 MG/DL (2.3-4.5); POTASSIUM 5.4 MMOL/L (3.5-5.1); SODIUM 135 MMOL/L (135-145); TOTAL CARBON DIOXIDE 17.3 MMOL/L (24-32); eCRCL 14 ML/MIN; eGFR 10 ML/MIN
[2025-01-29 21:41] LABS: GLUCOSE 594 MG/DL (70-104)
[2025-01-29] MEDS ORDERED: potassium Cl 40MEQ/270ML bag 270 ML IV PRN (23:15)
[2025-01-29] MEDS: dextrose 5%-1/2 normal saline 1,000 ML IV SCH (23:15)
[2025-01-29] MEDS ORDERED: sodium phosphate inj. 15 MMOL in dextrose 5%-water 250 ML IV PRN (23:15)
[2025-01-29] MEDS: Insulin Reg/NS 100units/100mL 100 ML IV SCH (23:56)
[2025-01-29 23:57] LABS: ABG BASE EXCESS -11.7 mmol/L (-2.0-3.0); ABG HCO3 13.2 mmol/L (21.0-28.0); ABG OXYGEN SATURATION 96.7 % (94.0-98.0); ABG PCO2 (T) 26.7 mmHg (32.0-45.0); ABG PO2 (T) 100.3 mmHg (83.0-108.0); ALLEN'S TEST Modified; FCOHb 0.3 % (0.5-1.5); FHHb 3.3 % (0.0-5.0); FMetHb 0.3 % (0.0-1.5); FO2Hb 96.1 % (94.0-98.0); PATIENT TEMPERATURE 36.9
--- NOTE | 2025-01-30 00:01 | HISTORY AND PHYSICAL-Residence ---
History & Physical Providers to CC Resident Creating Document: MARIA GUADALUPE BRENNERJACQUIEOSWALD, RES ~ History of Present Illness Primary Medical Doctor: Shira in [place] Reason for Admit\Complaint: CASEY, gastroparesis History of Present Illness This is a 29-year-old female with a history of type 1 diabetes mellitus, gastroparesis, s/p gastric stimulator, history of pyelonephritis s/p stent placement and removal came to the ER with a chief complaint of abdominal pain and vomiting. She reports diffuse abdominal pain which started three days ago, the pain is intermittent,10/10, nonradiating. Pain is associated with vomiting, about four episodes per day, not associated with blood in vomiting. Denies any diarrhea. She reports taking her insulin regularly. Denies any recent changes in her medications or any recent infections. She denies any fever, dysuria, increase in the frequency of urine, blood in the urine. Allergies: Coded Allergies: No Known Allergies (Unverified , 11/12/23) Home Medications Home Medications Active Ondansetron Odt (Ondansetron HCl) 4 Mg Tab.rapdis 4 Mg PO BID 5 Days Reglan (Metoclopramide HCl) 10 Mg Tablet 1 Tab PO Q8H 30 Days before food and bedtime Reported Basaglar Kwikpen U-100 (Insulin Glargine,Hum.rec.anlog) 100 Unit/Ml (3 Ml) Insuln.pen SQ Lantus* (Insulin Glargine) 100 Unit/1 Ml Vial SQ [Suboxone] 8mg-2mg Subl BID Past Medical History Past Medical History Type 1 diabetes mellitus, diagnosed 12 years ago Diabetes Gastroparesis Gastric stimulator placed five years ago About one year ago she had right sided pyelonephritis, stent was placed at that time and and removed four weeks later. At the time she had a UTI with Klebsiella, resistant to ceftriaxone, ciprofloxacin, Zosyn. History of hypertension History of hyperlipidemia Past Surgical History Surgical History Comment Gastric stimulator placement five years ago Ureteral stent placement and removal one year ago. Family History Family History: FH: diabetes mellitus Great aunt Past Social History Social History Comment Denies any history of smoking Denies any history of alcohol use Smokes marijuana on a daily basis Lives with her mother. Alcohol Use: None Drug Use: Marijuana Lives with: Family Lives In: Home ROS Constitutional: Denies: no symptoms reported, see HPI, chills, diaphoresis, fever, malaise, weakness, other Eyes: Denies: no symptoms reported, see HPI, pain, discharge, blurred vision, double vision, itching, photophobia, redness, tearing, other ENT: Denies: no symptoms reported, see HPI, ear pain, ear bleeding, ear discharge, hearing loss, ear ringing, nose pain, nose bleeding, nose congestion, nose discharge, throat pain, throat swelling, voice change, mouth pain, mouth bleeding, mouth swelling, other Respiratory: Denies: no symptoms reported, see HPI, cough, orthopnea, shortness of breath, SOB with exertion, SOB at rest, stridor, wheezing, hemoptysis, pain with breathing, other Cardiovascular: Denies: no symptoms reported, see HPI, chest pain, left arm pain, diaphoresis, lightheadedness, syncope, edema, palpitations, irregular heart rate, other Gastrointestinal: Reports: abdominal pain, nausea, vomiting Genitourinary: Denies: no symptoms reported, see HPI, burning, discharge, dysuria, frequency, flank pain, hematuria, incontinence, pain, decreased urine output, urgency, other Neurological: Denies: no symptoms reported, see HPI, speech problem, headache, dizziness, fainting, tingling, left sided numbness, right sided numbness, left sided weakness, right sided weakness, problems walking, unable to move lower ext, unable to move upper ext, petit mal seizures, tonic-clonic seizures, cognitive dysfunction, other Musculoskeletal: Denies: no symptoms reported, see HPI, pain, swelling, back pain, gout, joint pain, joint swelling, muscle pain, muscle swelling, muscle stiffness, neck pain, other Exam Vitals: Vital Signs Date Time Temp Pulse Resp B/P (MAP) Pulse Ox O2 Delivery O2 Flow Rate FiO2 01/29/25 23:20 74 16 142/80 (100) 99 0 01/29/25 22:34 97.6 General: General: Awake, in acute distress. HEENT: Conjunctiva pink, sclera clear, pupils equal in size with no nystagmus Chest: Bilateral entry present with no additional breath sound Cardiovascular: Tachycardia, no murmurs or rubs or gallops Abdomen: Soft, diffuse tenderness, guarding present, no rigidity, bowel sounds heard, gastric stimulator could be palpated on the left side of the abdomen Extremities: No cyanosis, edema, pallor Central Nervous System: Conscious, coherent, oriented x 3, no motor or sensory deficits, no cranial nerve deficits Skin: Warm and dry, Diagnostic Data Last Recorded Lab Results: 01/29/25 1349 01/29/252056 Advance Care Planning Advanced Care plannin - 30 Minutes (I spent 17 minutes in discussing various resuscitative measures, the patient chose to be full code.) Additional Plan Assessment This is a 29-year-old female with past medical history of type 1 diabetes mellitus, gastroparesis status post gastric stimulator placement came to the ER with a chief complaint of abdominal pain and vomiting. Her 1st set of labs showed normal blood glucose, 2nd set of labs showed DKA, started on DKA protocol. She is also in CASEY. Plan History of type 1 diabetic mellitus Diabetic ketoacidosis Diabetic gastroparesis s/p gastric stimulator First set of labs showed normal blood glucose 2nd set of labs showed bicarb of 17.3, anion gap 17, blood glucose 594 ABG showed pH 7.3, bicarb 13.2 A1c ordered Started on DKA protocol, insulin drip@ 7 mL/hour Patient is currently on NPO for DKA Metoclopramide 5 mg q.6 p.r.n. Prochlorperazine 5 mg q.6 p.r.n. Abdominal pain Likely secondary to gastroparesis Lipase, hCG negative Abdominal CT showed nonobstructing right renal stone. Small amount of free fluid in the pelvis. Pain management-one dose of fentanyl and 1 g of acetaminophen was given in the ER. Avoiding opioid medications in view of gastroparesis. CASEY secondary to renal tubular stasis Hyperkalemia Hyperphosphatemia Creatinine 5.78, BUN 72 Baseline creatinine in 2023 1.26 Urine electrolytes ordered. Received 3 L of LR in the ER. Potassium 5.4, patient is on insulin drip which will help correct the potassium Phosphorus 5.8, follow up with repeat labs. BMP q.6 Consult body corporate manager in the morning UTI History of pyelonephritis Elevated WBC count 13.0 Urine analysis positive for infection. Urine cultures ordered Abdominal CT showed nonobstructing right renal stone. No hydronephrosis. Patient received one dose of ceftriaxone in the ER. On 11/12/2023, patient had a UTI with Klebsiella, resistant to ceftriaxone, ciprofloxacin, Zosyn Started the patient on cefepime 1 g Q 24, calculated based on CASEY. Leukocytosis WBC count 13.0, neutrophil percentage 82.8 Could be reactive leukocytosis secondary to DKA vs or secondary to UTI Procalcitonin, lactic acid levels ordered. Urine cultures, blood cultures ordered. Normocytic anemia Hemoglobin 9.3 Iron studies ordered Stool occult ordered History of hypertension The blood pressure is maintaining in 140s. Home blood pressure medications include lisinopril, continue once the med rec is done. History of marijuana use U tox ordered Blood alcohol levels ordered Code status: Full code DVT prophylaxis: Heparin GI prophylaxis: Pantoprazole Diet: NPO Lines/tubes: Peripheral IV line Status: Guarded Robel Brenner M.D PGY1 Date of Service: January 29, 2025 Billing Provider: MYKEL THOMPSON MD, PRAVAHIKA, RES January 30, 2025 00:01
[2025-01-30] MEDS: ringers solution, lacted 1,000 ML IV SCH ×3 (00:11→20:51)
[2025-01-30] MEDS: morphine 2 MG/ML inj. syringe IV ONE (01:17)
[2025-01-30] MEDS: proCHLORperazine 10 MG/2 ml inj IV PRN (02:13)
[2025-01-30] MEDS: acetaminophen 325mg tablet PO PRN (03:08)
[2025-01-30] MEDS: diphenhydrAMINE 50 mg/ml inj IV ONE (03:55)
[2025-01-30 04:38] LABS: BASOPHILS # (AUTO) 0.1 X10'3 (0-0.2); BASOPHILS % (AUTO) 0.5 % (0-1); EOSINOPHILS % (AUTO) 0 % (0-6); HEMATOCRIT 29.2 % (35.0-45.0); HEMOGLOBIN 9.6 g/dl (12.0-16.0); LYMPHOCYTES # (AUTO) 1.3 X10'3 (1.1-4.8); LYMPHOCYTES % (AUTO) 9.8 % (21-51); MEAN CORPUSCULAR HEMOGLOBIN 29.6 PG (27.0-31.0); MEAN CORPUSCULAR HGB CONC 32.8 g/dL (33.0-36.5); MEAN CORPUSCULAR VOLUME 90.2 FL (78-98); MEAN PLATELET VOLUME 9.4 FL (7.4-10.4); MONOCYTES # (AUTO) 0.7 X10'3 (0-0.9); MONOCYTES % (AUTO) 5.1 % (2-12); NEUTROPHILS # (AUTO) 11.6 X10'3 (1.8-7.7); NEUTROPHILS % (AUTO) 84.6 % (42-75); PLATELET COUNT 211 X10'3 (140-440); RED BLOOD COUNT 3.24 X10'6 (4.20-5.60); RED CELL DISTRIBUTION WIDTH 13.4 % (11.5-14.5); WHITE BLOOD COUNT 13.7 X10'3 (4.5-11.0)
[2025-01-30 04:41] LABS: ALANINE AMINOTRANSFERASE 58 U/L (12-78); ALBUMIN 2.7 G/DL (3.4-5.0); ALBUMIN/GLOBULIN RATIO 0.7 (1.1-1.5); ALKALINE PHOSPHATASE 122 IU/L (46-116); ANION GAP 14 (8-16); ASPARTATE AMINO TRANSFERASE 28 U/L (10-37); BILIRUBIN,TOTAL 0.4 MG/DL (0.1-1.0); BLOOD UREA NITROGEN 68 MG/DL (7-18); BUN/CREATININE RATIO 11.8 (10.0-20.0); CALCIUM 8.2 MG/DL (8.5-10.1); CHLORIDE 101 MMOL/L (99-107); CHOL/HDL RATIO 1.8 (0.00-4.99); CHOLESTEROL 216 MG/DL (0-200); CREATININE 5.74 MG/DL (0.40-0.90); ETHANOL < 10 MG/DL (<10); GLUCOSE 364 MG/DL (70-104); HDL CHOLESTEROL 122 MG/DL (35-60); LDL CHOLESTEROL 70 MG/DL (50-100); PHOSPHORUS 5.5 MG/DL (2.3-4.5); POTASSIUM 3.9 MMOL/L (3.5-5.1); SODIUM 136 MMOL/L (135-145); TOTAL CARBON DIOXIDE 21.4 MMOL/L (24-32); TOTAL PROTEIN 6.6 G/DL (6.4-8.2); TRIGLYCERIDES 82 MG/DL (20-135); eCRCL 14 ML/MIN; eGFR 9 ML/MIN
[2025-01-30 04:52] LABS: % IRON SATURATION 28 % (11-46); IRON 75 UG/DL (49-151); TOTAL IRON BINDING CAPACITY 269 UG/DL (259-388)
[2025-01-30 05:10] LABS: URINE AMPHETAMINE SCREEN NEGATIVE (Neg); URINE BARBITUATE SCREEN NEGATIVE (Neg); URINE BENZODIAZEPINES SCREEN NEGATIVE (Neg); URINE CANNABINOID SCREEN POSITIVE (Neg); URINE COCAINE SCREEN NEGATIVE (Neg); URINE METHADONE SCREEN NEGATIVE (Neg); URINE OPIATE SCREEN NEGATIVE (Neg); URINE PHENCYCLIDINE SCREEN NEGATIVE (Neg)
[2025-01-30 05:13] LABS: TOTAL PROTEIN,URINE RANDOM 438.2 MG/DL
[2025-01-30] MEDS: insulin glargine (Lantus) VIAL- multi-dose SQ ONE (06:42)
[2025-01-30] MEDS: insulin glargine (Lantus) pen - multi-dose SQ ONE (07:10)
[2025-01-30] MEDS ORDERED: INSULIN LISPRO 100 UNIT/ML INSULN.PEN MULTI-DOSE SQ SCH ×3 (07:30→17:30)
[2025-01-30] MEDS: acetaminophen 1,000mg/100ml IV 100 ML IV STA (07:39)
[2025-01-30] MEDS: ondansetron/PF 4mg/2ml inj IV PRN (07:45)
--- NOTE | 2025-01-30 07:54 | PROCEDURE NOTE- Residance ---
Procedure Note Providers to CC CC: ADRIANA HYDE, ALAN ~ Indications Unaccessible peripheral Type of Anesthesia Local Description The [facility] Central Line Insertion Practices form was completed by an independent observer (_) starting with the first handwash prior to starting sterile technique. A time out was performed. My hands were washed immediately prior to the procedure. I wore a surgical cap, mask with protective eyewear, full gown and sterile gloves throughout the procedure. The patient was placed in Trend elenburg position. LEFT / RIGHT chest region was prepped using chlorhexidine scrub and draped in sterile fashion using a full drape and sterile probe cover and sterile gel employed. The medial and lateral heads of the sternocleidomastoid muscle were identified as was the carotid pulse. The Internal Jugular vein was identified using the ultrasound. Anesthesia was achieved over the vein using 1% lidocaine. Using real-time out of plane guidance, the introducer needle was inserted into the Internal Jugular vein under direct ultrasound visualization. Venous blood was withdrawn. The syringe was removed and a guidewire was advanced into the introducer needle. The guidewire was visualized in the Internal Jugular Vein by ultrasound. A small incision was made at the skin surface with a scalpel and the introducer needle was exchanged for a dilator over the guidewire. After appropriate dilation was obtained, the dilator was exchanged over the wire for a _ central venous catheter. The wire was removed and the catheter was sutured. A sterile sorbaview shield was placed over the catheter at the insertion site. The patient tolerated the procedure without any hemodynamic compromise. At time of procedure completion, all ports aspirated and flushed properly. Post-procedure chest x-ray is pending at this time. Estimated blood loss is 10 ml. X-Ray Findings Confirmed with x-ray postprocedure Date of Service: January 31, 2025 Billing Provider: NELL BORDEN MD, PRAVAHIKA, RES January 30, 2025 07:54
--- NOTE | 2025-01-30 07:58 | RADIOLOGY REPORT ---
CHEST RADIOGRAPH Indication: cvc placemant Technique: Single frontal view of the chest was obtained Comparison: CHEST SINGLE VIEW on DOS: 08/28/18 FINDINGS: Lines and Tubes: There is a right central venous catheter with its tip terminating in the superior ve na cava. Lungs: No focal consolidation. Pleura: No effusion. No pneumothorax. Cardiomediastinal contours: Unremarkable Bones: No acute osseous abnormality. IMPRESSION: 1. No acute cardiopulmonary disease.
[2025-01-30] MEDS: heparin, porcine 5000 units/ml vial SQ SCH (08:00)
[2025-01-30] MEDS: potassium Cl 40MEQ/1/2NS 520ml 520 ML IV PRN (08:05)
[2025-01-30] MEDS: K and/or MAG REPLACEMENT MC SCH (08:06)
[2025-01-30] MEDS: pantoprazole 40 MG vial IV SCH (08:07)
[2025-01-30 10:33] LABS: ALBUMIN 2.6 G/DL (3.4-5.0); ANION GAP 12 (8-16); BLOOD UREA NITROGEN 64 MG/DL (7-18); BUN/CREATININE RATIO 11.7 (10.0-20.0); CALCIUM 8.5 MG/DL (8.5-10.1); CHLORIDE 108 MMOL/L (99-107); CREATININE 5.46 MG/DL (0.40-0.90); GLUCOSE 132 MG/DL (70-104); POTASSIUM 4.3 MMOL/L (3.5-5.1); SODIUM 142 MMOL/L (135-145); TOTAL CARBON DIOXIDE 22.3 MMOL/L (24-32); eCRCL 15 ML/MIN; eGFR 9 ML/MIN
[2025-01-30] MEDS: metoclopramide 5 mg/ml inj IV PRN (10:53)
[2025-01-30] MEDS: dextrose 50%-water 50ml dispensing syringe IV PRN (11:57)
[2025-01-30] MEDS: hydrALAZINE 20mg/ml inj. IV PRN ×2 (12:20→18:25)
[2025-01-30] MEDS: Dextrose 10%-water IV solution 1,000 ML IV SCH (12:59)
[2025-01-30] MEDS ORDERED: hydrALAZINE 20mg/ml inj. IV ONE (13:40)
--- NOTE | 2025-01-30 13:48 | PROGRESS NOTE ---
Daily Progress Note Providers to CC ~ Objective Vital Signs Date Time Temp Pulse Resp B/P (MAP) Pulse Ox O2 Delivery O2 Flow Rate FiO2 01/30/25 12:20 95 01/30/25 12:16 16 197/122 (147) 100 0 01/29/25 22:34 97.6 Result Diagram: 01/30/25 0420 01/30/25 1007 ANDREY GUTIERREZ SURFBOARD DESIGNER January 30, 2025 13:48
[2025-01-30] MEDS: hydrALAZINE 20mg/ml inj. IV ONE (13:55)
--- NOTE | 2025-01-30 14:00 | PROGRESS NOTE ---
Daily Progress Note Providers to CC ~ Antibiotic Timeout Antibiotic Ordered?: Yes If Yes, Indications: UTI, sepsis Subjective No acute events overnight. Patient examined at bedside. No new complaints, not in acute distress. Patient denies chest pain, sob, palpitations, abdominal pain, n/v/d. Blood pressure profoundly elevated, labs notable for normalized lactic acid, downtrending creatinine, closed anion gap. gap closed, insulin drip discontinued, long-acting and supplemental on board, target initial glucose around 200. Discussed case with brim stretcher Dr. Mccormick with recommendation to continue hydration and re-evaluate for consult if no improvement. Objective Vital Signs Date Time Temp Pulse Resp B/P (MAP) Pulse Ox O2 Delivery O2 Flow Rate FiO2 01/30/25 12:20 95 01/30/25 12:16 16 197/122 (147) 100 0 01/29/25 22:34 97.6 Result Diagram: 01/30/25 0420 01/30/25 1007 Physical Exam General: Generalized weakness, A&Ox 3, NAD HEENT: Normocephalic, PERRLA Neck: Supple, trachea midline, no JVD Chest: Clear to auscultation bilaterally Cardiovascular: RRR, S1&S2 GI: Soft and nontender Extremities: No cyanosis/clubbing/or edema GIZZARD SKIN REMOVER: No focal deficits Musculoskeletal: No paraspinal muscle tenderness, no muscle spasm Skin: Warm and intact Problem\Assessment\Plan This is a 29-year-old female with past medical history of type 1 diabetes mellitus, gastroparesis status post gastric stimulator placement came to the ER with a chief complaint of abdominal pain and vomiting. # DKA # T1DM # Diabetic gastroparesis s/p gastric stimulator # Dehydration -lactic acid elevated likely due to hypoperfusion/hypovolemia, lactic acid normalized -gap closed, insulin drip discontinued, long-acting and supplemental on board, target initial glucose around 200, electrolyte replacement per protocol # Hypertensive Emergency- POA -prn hydralazine, labetalol # Prerenal CASEY 2/2 hyperglycemia/dehydration/vasomotor nephropathy # Hyperkalemia 2/2 CASEY # Hyperphosphatemia -01/30: continue fluid resuscitation, follow serial BMP; Discussed case with brim stretcher Dr. Mccormick with recommendation to continue hydration and re- evaluate for consult if no improvement. -CT abdomen/pelvis unremarkable # Sepsis 2/2 UTI- POA # UTI -fluid resuscitation, abx # Normocytic anemia -no signs of GIB, follow retic ct, H/H # Substance abuse Code status: Full code DVT/VTE prophylaxis: heparin Date of Service: January 30, 2025 Billing Provider: ANDREY GUTIERREZ Common Visit Codes: [id number] INP/OBS CARE(HIGH) ANDREY GUTIERREZ January 30, 2025 14:00
[2025-01-30 15:00] LABS: RED BLOOD COUNT 3.18 X10'6 (4.20-5.60)
[2025-01-30] MEDS ORDERED: dextrose 50%-water 50ml dispensing syringe IV PRN ×2 (15:05)
[2025-01-30] MEDS ORDERED: insulin glargine (Lantus) VIAL- multi-dose SQ ONE (15:05)
[2025-01-30] MEDS ORDERED: glucagon, human recombinant 1mg kit SUBCUT PRN (15:05)
[2025-01-30] MEDS ORDERED: DEXTROSE 15 GM of carb/4 tabs (each vial/BOTTLE has 4 tablets) PO PRN ×2 (15:05)
[2025-01-30 15:17] LABS: ALBUMIN 2.4 G/DL (3.4-5.0); ANION GAP 13 (8-16); BLOOD UREA NITROGEN 67 MG/DL (7-18); BUN/CREATININE RATIO 12.5 (10.0-20.0); CALCIUM 8.3 MG/DL (8.5-10.1); CHLORIDE 107 MMOL/L (99-107); CREATININE 5.37 MG/DL (0.40-0.90); GLUCOSE 107 MG/DL (70-104); POTASSIUM 4.3 MMOL/L (3.5-5.1); SODIUM 141 MMOL/L (135-145); TOTAL CARBON DIOXIDE 21.1 MMOL/L (24-32); eCRCL 15 ML/MIN; eGFR 9 ML/MIN
[2025-01-30] MEDS: HYDROmorphone/PF 0.2 MG/ML SYRINGE IV PRN (15:24)
[2025-01-30] MEDS ORDERED: HYDROmorphone/PF 0.2 MG/ML SYRINGE IV PRN (16:25)
[2025-01-30] MEDS: INSULIN LISPRO 100 UNIT/ML INSULN.PEN MULTI-DOSE SQ SCH (16:33)
[2025-01-30] MEDS: HYDROmorphone inj. 0.5 MG/0.5 ML DISP.SYRIN IV PRN (18:25)
[2025-01-30] MEDS: dextrose 50%-water 50ml dispensing syringe IV ONE (18:55)
[2025-01-30] MEDS: diphenhydrAMINE 50 mg/ml inj IM ONE (19:32)
[2025-01-30] MEDS: ringers solution, lacted 1,000 ML IV ONE ×2 (19:50→22:09)
--- NOTE | 2025-01-30 20:21 | CONSULTATION REPORT - RESIDENT ---
Consult Providers to CC Resident Creating Document: NICOLE YEUNG RES History of Present Illness Reason for Admit\Complaint: Abdominal pain History of Present Illness A 29-year-old female was admitted, for significant abdominal pain on 01/29/2025. Her labs were consistent for DKA and was treated as per protocol. Patient had significant amount of abdominal pain and several episodes of vomitings. She was diagnosed with type 1 diabetes mellitus 12 years ago and also has a significant history of peripheral neuropathy. Her A1c is 8.3 but claims she has been compliant with medications. Incidentally her labs showed a creatinine of 5 with her baseline creatinine being 1.6. Hence Nephrology was consulted. Patient was educated regarding the possible need for dialysis in future and she was explained that she would be referred for renal transplantation. Allergies: Coded Allergies: No Known Allergies (Unverified , 11/12/23) Home Medications Home Medications Active Ondansetron Odt (Ondansetron HCl) 4 Mg Tab.rapdis 4 Mg PO BID 5 Days Reglan (Metoclopramide HCl) 10 Mg Tablet 1 Tab PO Q8H 30 Days before food and bedtime Reported Basaglar Kwikpen U-100 (Insulin Glargine,Hum.rec.anlog) 100 Unit/Ml (3 Ml) Insuln.pen SQ Lantus* (Insulin Glargine) 100 Unit/1 Ml Vial SQ [Suboxone] 8mg-2mg Subl BID Past Medical History Past Medical History Type 1 diabetes mellitus, diagnosed 12 years ago Diabetes Gastroparesis Gastric stimulator placed five years ago About one year ago she had right sided pyelonephritis, stent was placed and removed for 4 weeks History of UTI secondary to Klebsiella, resistant to ceftriaxone, ciprofloxacin, Zosyn. Hypertension Hyperlipidemia Past Surgical History Surgical History Comment Gastric stimulator placement five years ago Ureteral stent placement and removal one year ago. Family History Family History: FH: diabetes mellitus Great aunt Past Social History Social History Comment Denied smoking and alcohol use. Smokes marijuana daily ROS ROS Reviewed in full. All negative except for pertinent positive HPI. Exam Vitals: Vital Signs Date Time Temp Pulse Resp B/P (MAP) Pulse Ox O2 Delivery O2 Flow Rate FiO2 01/30/25 19:00 17 01/30/25 18:59 101 98 01/30/25 18:17 0 01/29/25 22:34 97.6 General: In apparent distress HEENT: Atraumatic, normocephalic, EOMI, anicteric sclera ; pink conjunctiva Neck: Trachea midline. Supple, full range of motion, no JVD Cardiac: Regular rhythm, regular rate with systolic murmurs all over the precordium. Respiratory: Equal breath sounds bilaterally, no tachypnea, no wheezing ,rub or rales, Chest wall is symmetric and without deformity. Gastrointestinal: Soft, diffuse tenderness, guarding present, no rigidity, bowel sounds heard, gastric stimulator could be palpated on the left side of the abdomen Musculoskeletal: No pedal edema, no cyanosis, Neurological: Speech is clear, alert, and oriented x 4. No motor or sensory deficit, deep tendon reflexes normal, cerebellar intact. Cranial nerves II-XII intact. Skin: Warm and dry Diagnostic Data Last Recorded Lab Results: 01/30/25 0420 01/30/25 1440 Additional Plan Acute Kidney Injury (CASEY) on Chronic Kidney Disease (CKD): The patient has baseline creatinine of 1.26 (2023), now elevated to 5.37, with BUN of 67, likely multifactorial due to renal tubular stasis, dehydration, and nephrotic-range proteinuria (24-hour urine protein: 8 g). Imaging shows a non-obstructing right renal stone without hydronephrosis. Monitor renal function with BMP every 6 hours. Maintain hydration with IV fluids while avoiding volume overload. Monitor urine output and adjust fluid management. Evaluate for nephrotoxin exposure and manage accordingly. Possible Nephrotic Syndrome secondary to Diabetes Significant proteinuria ( calculated 24-hour urine protein: 8 g) likely secondary to diabetic nephropathy. Quantify proteinuria trend with follow-up urine protein/creatinine ratio. Consider renal biopsy if proteinuria persists and alternative etiologies are suspected. Start lisinopril once renal function stabilizes and potassium permits. Hyperkalemia: Potassium is 5.4, improving with insulin therapy for DKA. Monitor potassium levels every 6 hours. Continue insulin therapy as part of DKA protocol. Consider sodium bicarbonate or potassium binders if hyperkalemia worsens. Hyperphosphatemia: Phosphorus is elevated at 5.8, likely due to CASEY. Monitor phosphorus levels daily. Initiate a phosphate binder (e.g., sevelamer) with meals. Normocytic Anemia: Hemoglobin is 9.6, likely due to CKD and chronic disease. Monitor hemoglobin levels and iron studies. Address any detected iron deficiency. Consider erythropoiesis-stimulating agents if anemia persists after iron repletion. Urinary Tract Infection (UTI): Patient has a UTI with a history of Klebsiella resistant to ceftriaxone, ciprofloxacin, and Zosyn. Currently on cefepime. Continue cefepime, dose-adjusted for CASEY. Monitor urine and blood cultures for pathogen identification and sensitivity. Diabetes and Diabetic Ketoacidosis (DKA): Patient was in DKA on admission with elevated glucose (594), anion gap (17), and bicarbonate (13.2 on ABG). Treated per protocol with insulin drip. currently anion gap closed, blood sugars 179, further management per primary team Continue insulin drip per DKA protocol with frequent glucose and electrolyte monitoring. Transition to subcutaneous insulin when the anion gap closes and the patient stabilizes. Electrolyte Management: Ongoing disturbances secondary to CASEY and DKA. Monitor electrolytes (K+, Phos, Mg2+) closely. Correct abnormalities as indicated. Plan: Patient was educated regarding the possible need for dialysis in future and also was explained that she would be referred for renal transplantation Outpatient care with endocrinology for diabetes management Outpatient follow up with Nephrology after discharge Code Status: Full code DVT Prophylaxis: Heparin SQ Disposition: Medical management for now Nicole Yeung MD Internal Medicine Resident, PGY-1 Atending Note: Patient seen and examined with resident. Casey + nephrotic range proteinuria, that appears chronically ill. Has a lot of healed comedones with scars ovearthe face, creatinine is slow to get better. Concerned, if she had a hit to her kidneys with this volume depleted state. will do the work up for proteinuria as usual. hydration to continue aggressively. will follow along with you. Care plan reviewed with resident. Giovany Mccormick MD Nephrology Date of Service: January 30, 2025 Billing Provider: GIOVANY MCCORMICK MD, GAURAV, RES January 30, 2025 20:21 GIOVANY MCCORMICK MD January 31, 2025 07:04
[2025-01-30 20:44] LABS: ALBUMIN 2.3 G/DL (3.4-5.0); ANION GAP 11 (8-16); BLOOD UREA NITROGEN 60 MG/DL (7-18); BUN/CREATININE RATIO 11.3 (10.0-20.0); CALCIUM 8.1 MG/DL (8.5-10.1); CHLORIDE 105 MMOL/L (99-107); GLUCOSE 207 MG/DL (70-104); POTASSIUM 4.5 MMOL/L (3.5-5.1); SODIUM 137 MMOL/L (135-145); TOTAL CARBON DIOXIDE 21.3 MMOL/L (24-32); eCRCL 15 ML/MIN; eGFR 10 ML/MIN
[2025-01-30] MEDS: insulin glargine (Lantus) VIAL- multi-dose SQ SCH (21:00)
[2025-01-30] MEDS: labetalol 20mg/4ml (5mg/ml) syringe IV PRN (23:23)
[2025-01-30 23:30] VITALS: BP 179/116; PULSE 102; RESP 9; TEMP 96.1; O2SAT 99
[2025-01-31] VITALS (9 sets, daily range): BP systolic 137–200; BP diastolic 56–122; PULSE 90–104; RESP 12–22; TEMP 97.1–98; O2SAT 96–100
[2025-01-31 06:42] LABS: BASOPHILS # (AUTO) 0.1 X10'3 (0-0.2); BASOPHILS % (AUTO) 0.3 % (0-1); EOSINOPHILS # (AUTO) 0.1 X10'3 (0-0.9); EOSINOPHILS % (AUTO) 0.3 % (0-6); HEMATOCRIT 29.2 % (35.0-45.0); HEMOGLOBIN 9.5 g/dl (12.0-16.0); LYMPHOCYTES # (AUTO) 2.2 X10'3 (1.1-4.8); LYMPHOCYTES % (AUTO) 8.8 % (21-51); MEAN CORPUSCULAR HEMOGLOBIN 29.5 PG (27.0-31.0); MEAN CORPUSCULAR HGB CONC 32.6 g/dL (33.0-36.5); MEAN CORPUSCULAR VOLUME 90.5 FL (78-98); MEAN PLATELET VOLUME 9.7 FL (7.4-10.4); MONOCYTES # (AUTO) 1.2 X10'3 (0-0.9); MONOCYTES % (AUTO) 4.9 % (2-12); NEUTROPHILS # (AUTO) 21.2 X10'3 (1.8-7.7); NEUTROPHILS % (AUTO) 85.7 % (42-75); PLATELET COUNT 281 X10'3 (140-440); RED BLOOD COUNT 3.23 X10'6 (4.20-5.60); RED CELL DISTRIBUTION WIDTH 13.1 % (11.5-14.5); WHITE BLOOD COUNT 24.7 X10'3 (4.5-11.0)
[2025-01-31 07:19] LABS: ALANINE AMINOTRANSFERASE 44 U/L (12-78); ALBUMIN 2.2 G/DL (3.4-5.0); ALBUMIN/GLOBULIN RATIO 0.5 (1.1-1.5); ALKALINE PHOSPHATASE 126 IU/L (46-116); ANION GAP 12 (8-16); ASPARTATE AMINO TRANSFERASE 24 U/L (10-37); BILIRUBIN,TOTAL 0.4 MG/DL (0.1-1.0); BLOOD UREA NITROGEN 57 MG/DL (7-18); BUN/CREATININE RATIO 10.8 (10.0-20.0); CALCIUM 8.3 MG/DL (8.5-10.1); CHLORIDE 106 MMOL/L (99-107); CREATININE 5.27 MG/DL (0.40-0.90); FERRITIN 347 NG/ML (8-252); GLUCOSE 102 MG/DL (70-104); MAGNESIUM 1.9 MG/DL (1.5-2.4); PHOSPHORUS 4.7 MG/DL (2.3-4.5); POTASSIUM 4.6 MMOL/L (3.5-5.1); SODIUM 139 MMOL/L (135-145); TOTAL CARBON DIOXIDE 21.4 MMOL/L (24-32); TOTAL PROTEIN 6.3 G/DL (6.4-8.2); eCRCL 15 ML/MIN; eGFR 10 ML/MIN
[2025-01-31] MEDS ORDERED: cefepime 1GM/NS ADD-VANTAGE 100 ML IV SCH (08:00)
[2025-01-31] MEDS ORDERED: labetalol 20mg/4ml (5mg/ml) syringe IV PRN (15:15)
--- NOTE | 2025-01-31 15:19 | PROGRESS NOTE ---
Daily Progress Note Providers to CC ~ Antibiotic Timeout Antibiotic Ordered?: Yes If Yes, Indications: UTI Subjective No acute events overnight. Patient examined at bedside. No new complaints, not in acute distress. Patient denies chest pain, sob, palpitations, n/v/d. Reports abdominal pain but improved compared to yesterday. Labs notable for uptrended white count, Cr downtrending with fluid resuscitation and continuous IV LR but not much. GFR remains 9-10. Blood pressure profoundly elevated today with systolic at 200, hydralazine and labetaolol IV given. Tele sinus in 90s. Urine culture resulted positive for Enterobacter aerogenes sensitive to cefepime. Continued on long-acting and supplemental. Diet advanced. Objective Vital Signs Date Time Temp Pulse Resp B/P (MAP) Pulse Ox O2 Delivery O2 Flow Rate FiO2 01/31/25 12:20 102 01/31/25 08:00 20 96 Room Air 01/31/25 06:00 97.4 142/56 (84) 01/30/25 18:17 0 Result Diagram: 01/31/25 0544 01/31/25 0544 Physical Exam General: Generalized weakness, A&Ox 3, NAD HEENT: Normocephalic, PERRLA Neck: Supple, trachea midline, no JVD Chest: Clear to auscultation bilaterally Cardiovascular: RRR, S1&S2 GI: Soft and nontender Extremities: No cyanosis/clubbing/or edema BOX TRUCK WASHER: No focal deficits Musculoskeletal: No paraspinal muscle tenderness, no muscle spasm Skin: Warm and intact Problem\Assessment\Plan This is a 29-year-old female with past medical history of type 1 diabetes mellitus, gastroparesis status post gastric stimulator placement came to the ER with a chief complaint of abdominal pain and vomiting. # DKA # T1DM # Diabetic gastroparesis s/p gastric stimulator # Dehydration -lactic acid elevated likely due to hypoperfusion/hypovolemia, lactic acid normalized -gap closed, insulin drip discontinued, long-acting and supplemental on board, target initial glucose around 200, electrolyte replacement per protocol -01/31: continue long-acting and supplemental; diet advanced # Hypertensive Emergency- POA -prn hydralazine, labetalol # Prerenal CASEY 2/2 hyperglycemia/dehydration/vasomotor nephropathy # Hyperkalemia 2/2 CASEY # Hyperphosphatemia -01/30: continue fluid resuscitation, follow serial BMP; Discussed case with early childhood Dr. Mccormick with recommendation to continue hydration and re- evaluate for consult if no improvement. -CT abdomen/pelvis unremarkable -01/31: Cr downtrending with fluid resuscitation and continuous IV LR but not much. GFR remains 9-10. # Sepsis 2/2 UTI- POA # UTI -fluid resuscitation, abx -01/31: urine culture resulted positive for Enterobacter aerogenes sensitive to cefepime. # Normocytic anemia -no signs of GIB, follow retic ct, H/H # Substance abuse Code status: Full code DVT/VTE prophylaxis: heparin Date of Service: January 31, 2025 Billing Provider: ANDREY GUTIERREZ Common Visit Codes: [id number] INP/OBS CARE(HIGH) ANDREY GUTIERREZ January 31, 2025 15:19
[2025-01-31] MEDS: diazepam inj 5 MG/ML inj. IV PRN (15:41)
--- NOTE | 2025-01-31 18:07 | PROGRESS NOTE- Residence ---
Progress Note - Resident Providers to CC Resident Creating Document: NICOLE YEUNG RES ~ Antibiotic Timeout Antibiotic Ordered?: No Subjective Patient was seen and examined at bedside, no acute overnight events. Objective Vital Signs Date Time Temp Pulse Resp B/P (MAP) Pulse Ox O2 Delivery O2 Flow Rate FiO2 01/31/25 15:00 97.1 104 14 173/107 (129) 98 Room Air 01/30/25 18:17 0 Result Diagram: 01/31/2554301/31/25543 HEENT: Atraumatic, normocephalic, EOMI, anicteric sclera ; pink conjunctiva Neck: Trachea midline. Supple, full range of motion, no JVD Cardiac: Regular rhythm, regular rate with systolic murmurs all over the precordium. Respiratory: Equal breath sounds bilaterally, no tachypnea, no wheezing ,rub or rales, Chest wall is symmetric and without deformity. Gastrointestinal: Soft, diffuse tenderness, guarding present, no rigidity, bowel sounds heard, gastric stimulator could be palpated on the left side of the abdomen Musculoskeletal: No pedal edema, no cyanosis, Neurological: Speech is clear, alert, and oriented x 4. No motor or sensory deficit, deep tendon reflexes normal, cerebellar intact. Cranial nerves II-XII intact. Skin: Warm and dry Advance Care Planning Advanced Care plannin - 30 Minutes Assessment Assessment A 29-year-old female was admitted, for significant abdominal pain on 01/29/2025. Her labs were consistent for DKA and was treated as per protocol. Patient had significant amount of abdominal pain and several episodes of vomitings. She was diagnosed with type 1 diabetes mellitus 12 years ago and also has a significant history of peripheral neuropathy. Her A1c is 8.3 but claims she has been compliant with medications. Incidentally her labs showed a creatinine of 5 with her baseline creatinine being 1.6. Hence Nephrology was consulted. Patient was educated regarding the possible need for dialysis in future and she was explained that she would be referred for renal transplantation. Plan Plan Acute Kidney Injury (CASEY) on Chronic Kidney Disease (CKD): The patient has baseline creatinine of 1.26 (2023), now elevated to 5.37, with BUN of 67, likely multifactorial due to renal tubular stasis, dehydration, and nephrotic-range proteinuria (24-hour urine protein: 8 g). Imaging shows a non-obstructing right renal stone without hydronephrosis. Monitor renal function with BMP Maintain hydration with IV fluids while avoiding volume overload. Monitor urine output and adjust fluid management. Evaluate for nephrotoxin exposure and manage accordingly. 01/31/25: Very mild improvement in creatinine 5.27, continue LR at 1:50 a.m. cc/hour Possible Nephrotic Syndrome secondary to Diabetes Significant proteinuria ( calculated 24-hour urine protein: 8 g) likely secondary to diabetic nephropathy. Quantify proteinuria trend with follow-up urine protein/creatinine ratio. Consider renal biopsy if proteinuria persists and alternative etiologies are suspected. Start lisinopril once renal function stabilizes and potassium permits. Hyperkalemia: Potassium is 4.6, normalized Monitor potassium levels daily Consider sodium bicarbonate or potassium binders if hyperkalemia worsens. Hyperphosphatemia: Phosphorus is elevated at 4.7 Monitor phosphorus levels daily. Initiated a phosphate binder (e.g., sevelamer) with meals. Normocytic Anemia: Hemoglobin is stable, likely due to CKD and chronic disease. Normal iron studies Urinary Tract Infection (UTI): Patient has a UTI with a history of Klebsiella resistant to ceftriaxone, ciprofloxacin, and Zosyn. Currently on cefepime. Continue cefepime, dose-adjusted for CASEY. Monitor urine and blood cultures for pathogen identification and sensitivity. Diabetes and Diabetic Ketoacidosis (DKA): Patient was in DKA on admission with elevated glucose (594), anion gap (17), and bicarbonate (13.2 on ABG). Treated per protocol with insulin drip. currently anion gap closed, blood sugars 179, further management per primary team Continue insulin drip per DKA protocol with frequent glucose and electrolyte monitoring. Transition to subcutaneous insulin when the anion gap closes and the patient stabilizes. 01/31/25: Anion gap closed and subcutaneous insulin has been initiated Electrolyte Management: Ongoing disturbances secondary to CASEY and DKA. Monitor electrolytes (K+, Phos, Mg2+) closely. Correct abnormalities as indicated. Plan: Patient was educated regarding the possible need for dialysis in future and also was explained that she would be referred for renal transplantation Outpatient care with endocrinology for diabetes management Outpatient follow up with Nephrology after discharge Code Status: Full code Disposition: Medical management for now Case discussed with Dr. Felix Yeung MD Internal Medicine Resident, PGY-1 Date of Service: January 31, 2025 Billing Provider: DONNIE CALLE III, DO NICOLE YEUNG, RES January 31, 2025 18:07
[2025-01-31] MEDS: insulin glargine (Lantus) VIAL- multi-dose SQ SCH (21:00)
[2025-02-01 02:00] VITALS: BP 129/82; PULSE 80; RESP 15; TEMP 98; O2SAT 97
[2025-02-01 04:52] LABS: BASOPHILS % (AUTO) 0.3 % (0-1); EOSINOPHILS # (AUTO) 0.1 X10'3 (0-0.9); EOSINOPHILS % (AUTO) 0.7 % (0-6); HEMATOCRIT 23.5 % (35.0-45.0); HEMOGLOBIN 7.6 g/dl (12.0-16.0); LYMPHOCYTES # (AUTO) 1.3 X10'3 (1.1-4.8); MEAN CORPUSCULAR HEMOGLOBIN 29.2 PG (27.0-31.0); MEAN CORPUSCULAR HGB CONC 32.4 g/dL (33.0-36.5); MEAN CORPUSCULAR VOLUME 90.1 FL (78-98); MEAN PLATELET VOLUME 9.1 FL (7.4-10.4); MONOCYTES # (AUTO) 0.5 X10'3 (0-0.9); MONOCYTES % (AUTO) 5.5 % (2-12); NEUTROPHILS # (AUTO) 7.9 X10'3 (1.8-7.7); NEUTROPHILS % (AUTO) 80.5 % (42-75); PLATELET COUNT 203 X10'3 (140-440); RED BLOOD COUNT 2.61 X10'6 (4.20-5.60); RED CELL DISTRIBUTION WIDTH 13.1 % (11.5-14.5); WHITE BLOOD COUNT 9.9 X10'3 (4.5-11.0)
[2025-02-01 04:58] LABS: ALANINE AMINOTRANSFERASE 34 U/L (12-78); ALBUMIN/GLOBULIN RATIO 0.6 (1.1-1.5); ALKALINE PHOSPHATASE 104 IU/L (46-116); ANION GAP 10 (8-16); ASPARTATE AMINO TRANSFERASE 26 U/L (10-37); BILIRUBIN,TOTAL 0.2 MG/DL (0.1-1.0); BLOOD UREA NITROGEN 51 MG/DL (7-18); BUN/CREATININE RATIO 10.2 (10.0-20.0); CALCIUM 7.4 MG/DL (8.5-10.1); CHLORIDE 107 MMOL/L (99-107); GLUCOSE 191 MG/DL (70-104); MAGNESIUM 1.7 MG/DL (1.5-2.4); PHOSPHORUS 4.9 MG/DL (2.3-4.5); POTASSIUM 4.3 MMOL/L (3.5-5.1); SODIUM 139 MMOL/L (135-145); TOTAL CARBON DIOXIDE 22.3 MMOL/L (24-32); TOTAL PROTEIN 5.3 G/DL (6.4-8.2); eCRCL 16 ML/MIN; eGFR 10 ML/MIN
[2025-02-01 06:00] VITALS: BP 146/92; PULSE 70; RESP 16; TEMP 98.1; O2SAT 98
[2025-02-01 08:00] VITALS: RESP 16; O2SAT 98
[2025-02-01] MEDS ORDERED: INSU100I8 SQ (08:20)
[2025-02-01] MEDS ORDERED: LEVO750T68 PO (08:20)
[2025-02-01] MEDS ORDERED: LABE100T8 PO (08:20)
[2025-02-01] MEDS ORDERED: LANTUS SQ (08:20)
[2025-02-01] MEDS ORDERED: NOR5T PO (08:20)
[2025-02-01] MEDS: labetalol 100mg tablet PO SCH (08:26)
[2025-02-01] MEDS: amLODIPine 5mg tablet PO SCH (08:27)
[2025-02-01] MEDS: sevelamer carbonate 800mg tablet PO SCH (10:23)
[2025-02-01 11:00] VITALS: BP 170/101; PULSE 84; RESP 16; TEMP 97.8; O2SAT 97
[2025-02-01 12:07] VITALS: BP_SYST 170; PULSE 84
--- NOTE | 2025-02-01 12:34 | DISCHARGE SUMMARY ---
Discharge Summary Providers to CC ~ Discharge Summary Admission Diagnosis: DKA, CASEY, UTI, sepsis Hospital Course DATE OF ADMISSION: 01/29/25 DATE OF DISCHARGE: 02/01/25 Discharge Diagnosis\\Comment: DKA T1DM Diabetic gastroparesis s/p gastric stimulator Dehydration Hypertensive Emergency- POA Prerenal CASEY 2/2 hyperglycemia/dehydration/vasomotor nephropathy Hyperkalemia 2/2 CASEY Hyperphosphatemia Sepsis 2/2 UTI- POA UTI Normocytic anemia Substance abuse Operations\\Procedures: None Consultants: [employer] Weighmaster Dr. Mccormick/ Dr. Washington Complications: None Condition on DC: Stable New Medications: Levofloxacin (Levofloxacin) 750 Mg Tablet 750 MG PO DAILY for 7 Days, #7 TAB Amlodipine Besylate (Amlodipine Besylate) 5 Mg Tablet 10 MG PO DAILY for 30 Days, #30 TAB Insulin Glargine,Hum.rec.anlog* (Lantus*) 100 Unit/1 Ml Vial 10 UNIT SQ HS for 30 Days, #3 ML Insulin Lispro (Humalog) 100 Unit/Ml Insuln.pen 0 UNIT SQ ACHS for 30 Days, #9 ML SLIDING SCALE, MEALTIME INSULIN Less than 150: 0 units 150-199: 1 units 200-249: 3 units 250-299: 5 units 300-349: 7 units 350-400: 9 units Greater than 400: CALL Labetalol Hcl (Labetalol Hcl) 100 Mg Tablet 100 MG PO BID for 30 Days, #60 TAB Continued Medications: Metoclopramide HCl (Reglan) 10 Mg Tablet 1 TAB PO Q8H for 30 Days, #90 TAB 0 Refills before food and bedtime ONDANSETRON ODT 4mg tablet (Ondansetron Odt) 4 Mg Tab.rapdis 4 MG PO BID for 5 Days, #10 TAB [Suboxone] () 8mg-2mg SUBL BID Discontinued Medications: Insulin Glargine,Hum.rec.anlog (Basaglar Kwikpen U-100) 100 Unit/Ml (3 Ml) Insuln.pen SQ Insulin Glargine,Hum.rec.anlog* (Lantus*) 100 Unit/1 Ml Vial SQ Discharge Summary: History of Present Illness From H&P: "This is a 29-year-old female with a history of type 1 diabetes mellitus, gastroparesis, s/p gastric stimulator, history of pyelonephritis s/p stent placement and removal came to the ER with a chief complaint of abdominal pain and vomiting. She reports diffuse abdominal pain which started three days ago, the pain is intermittent,10/10, nonradiating. Pain is associated with vomiting, about four episodes per day, not associated with blood in vomiting. Denies any diarrhea. She reports taking her insulin regularly. Denies any recent changes in her medications or any recent infections. She denies any fever, dysuria, increase in the frequency of urine, blood in the urine." Hospital Course Initial diagnostic findings were notable for elevated lactic acid, elevated anion gap, urinalysis indicating urinary tract infection, hyperglycemia, markedly elevated blood pressure, severe renal insufficiency, hyperkalemia, hyperphosphatemia. Pertinent negative findings were unremarkable CT abdomen/pelvis. Patient was started on insulin drip, bolus fluids followed by continuous fluids, empirical antibiotics, electrolyte replacement protocol. With initiation of medical therapy, lactic acid normalized, electrolytes stabilized and renal function slowly improved. Once anion gap closed, patient was treated with long-acting and supplemental insulin. Diet was advanced from clear to carb controlled as tolerated which patient tolerated well. Case was consulted with oracle programmer analyst Dr. Mccormick. Despite aggressive fluid resuscitation, patient's renal function still remains compromised. Patient was seen by oracle programmer analyst Dr. Washington who recommended immediate outpatient follow up to plan dialysis upon discharge. Patient is cleared for discharge from nephrology standpoint by Dr. Washington on the day of discharge. Patient did not experience further complications throughout the entire hospital stay and remained clinically and hemodynamically stable. Patient was seen and examined on the day of discharge. On day of discharge, vss and labs notable for normalized white count, improved but still compromised renal function. A urine culture resulted postive for Enterobacter aerogenes. Preliminary blood culture remains negative until the day of discharge. All labs, diagnostic workups, discharge plan discussed with patient in details during visit before discharge. All questions and concerns answered to the best of my professional knowledge. Physical Exam General: A&Ox 3, NAD HEENT: Normocephalic, PERRLA Neck: Supple, trachea midline, no JVD Chest: Clear to auscultation bilaterally Cardiovascular: RRR, S1&S2 GI: Soft and nontender Extremities: No cyanosis/clubbing/or edema BILINGUAL CUSTOMER SERVICE: CN II-XII intact, no focal deficits Musculoskeletal: No paraspinal muscle tenderness, no muscle spasm Skin: Warm and intact *Problems/Diagnosis: (1) Sepsis Status: Acute (2) DKA (diabetic ketoacidosis) Status: Acute (3) UTI (urinary tract infection) Status: Acute (4) Diabetic gastroparesis Status: Acute (5) Acute kidney injury Status: Acute Total Time Spent on D/C: > 30 Minutes Date of Service: February 01, 2025 Billing Provider: ANDREY GUTIERREZ Common Visit Codes: [id number]-[id number] DISCH DAY >30min Problem Qualifiers (1) DKA (diabetic ketoacidosis): Qualified Codes: E10.10 - Type 1 diabetes mellitus with ketoacidosis without coma (2) UTI (urinary tract infection): Qualified Codes: N30.01 - Acute cystitis with hematuria ANDREY GUTIERREZ February 01, 2025 12:33
--- NOTE | 2025-02-01 13:30 | PROGRESS NOTE ---
Progress Note Dictate Providers to CC ~ Antibiotic Ordered?: N/A Subjective Subjective She states she is doing well this morning, was resting in bed comfortably, she and I had a lengthy discussion about dialysis, and her likely need for it in the near future, there is no indication for it today but I want her to see me in clinic within 2 weeks with her routine labs for CKD 4 Objective Vitals Vital Signs Date Time Temp Pulse Resp B/P (MAP) Pulse Ox O2 Delivery O2 Flow Rate FiO2 02/01/25 12:07 84 02/01/25 11:00 97.8 16 170/101 (124) 97 Room Air 01/30/25 18:17 0 General: Well appearing, well nourished, in no distress. Oriented x 3, Neck: Supple, without JVD Heart: Regular rate and rhythm, no murmur Lungs: Clear to auscultation and percussion Abdomen: Bowel sounds normal, no tenderness, organomegaly, masses, or hernia Extremities: No cyanosis, no edema, peripheral pulses intact Neurologic: Sensation to touch, normal. DTRs normal moves all extremities spontaneously. Lab Results: 02/01/25 0400 02/01/25 0400 Problem\Assessment\Plan Problems/Diagnosis: (1) Acute kidney injury Assessment & Plan: CASEY on CKD 3B, most likely this is natural progression to CKD 4/5, no acute indication for dialysis today, she and I discussed different modes of dialysis, she may need a TDC placed briefly for dialysis, but we will have her evaluated for peritoneal dialysis, she would like to do it at home if she could, okay to discharge today with appropriate labs and follow-up in my clinic in 2 weeks (2) Type I diabetes mellitus Assessment & Plan: Admitted for hypoglycemia, resolved, she and I had a discussion about her medical management, I will give her further suggestions at her next evaluation DONNIE CALLE III DO February 01, 2025 13:30
[2025-02-01] MEDS ORDERED: insulin glargine (Lantus) VIAL- multi-dose SQ SCH (21:00)
== END 2025-02-01 14:02 | disposition home or self-care (01) | DRG 720 ==
LOC: ER 12:58 → ED HOLD 22:03 → PCU 3S 01-30 23:11
PROVIDERS: ADMIT Internal Medicine Sleep Medicine; ATTEND Nurse Practitioner Family
PROC: 02HV33Z Insertion of Infusion Device into Superior Vena Cava, Percutaneous Approach (ICD-10-PCS; principal; 2025-01-30)
PROC: B548ZZA Ultrasonography of Superior Vena Cava, Guidance (ICD-10-PCS; 2025-01-30)
DX: A41.9 Sepsis, unspecified organism (principal); N17.0 Acute kidney failure with tubular necrosis; E10.10 Type 1 diabetes mellitus with ketoacidosis without coma; E83.39 Other disorders of phosphorus metabolism; E10.22 Type 1 diabetes mellitus with diabetic chronic kidney disease; D64.9 Anemia, unspecified; E86.0 Dehydration; K31.84 Gastroparesis; E10.43 Type 1 diabetes mellitus with diabetic autonomic (poly)neuropathy; I12.9 Hypertensive chronic kidney disease with stage 1 through stage 4 chronic kidney disease, or unspecified chronic kidney disease; N39.0 Urinary tract infection, site not specified; E87.5 Hyperkalemia; I16.1 Hypertensive emergency; F19.10 Other psychoactive substance abuse, uncomplicated; N18.32 Chronic kidney disease, stage 3b; Z79.4 Long term (current) use of insulin; Z83.3 Family history of diabetes mellitus
CPT/HCPCS: 36415; 36600; 71045; 74176; 80048; 80053; 80061; 80305; 80320; 81001; 82570; 82728; 82803; 82948; 83036; 83540; 83550; 83605; 83690; 83735; 83935; 84100; 84132; 84145; 84156; 84300; 84703; 85018; 85025; 85045; 87040; 87077; 87081; 87088; 87186; 87207; 96361; 96365; 96366; 96367; 96372; 96375; 97116; 97161; 97530; 99291; C1751; G0378; J0131; J0360; J0692; J0696; J0780; J1171; J1200; J1644; J1815; J2270; J2405; J2470; J2765; J3010; J3360; J3480; J3490; J7040; J7120